=== PATIENT | female | born 1950 | race Two or more races ===

== ENCOUNTER 2019-11-20 11:16 | Outpatient (REF) | payer MEDICARE, BC, SELFPAY ==
[2019-11-20 13:56] LABS: MANUAL DIFF FLAG NO
[2019-11-20 14:02] LABS: Basophils Percent Auto 0.6 % (0-2); Eosinophils Absolute Auto 0.2 X10*3/uL (0.0-0.4); Eosinophils Percent Auto 2.4 % (0-4); Hematocrit 45.4 % (37-47); Imm Gran Abs Auto 0.01 X10*3/uL (0.00-0.03); Imm Gran Pct Auto 0.2 % (0.0-0.4); Lymphocytes Absolute Auto 1.4 X10*3/uL (1.2-4.9); Mean Corpuscular Hemoglobin 31.5 pg (27.0-33.0); Mean Corpuscular Volume 95.4 fL (80-98); Monocytes Absolute Auto 0.6 X10*3/uL (0.1-1.2); Monocytes Percent Auto 9.3 % (2-11); Neutrophils Absolute Auto 4.1 X10*3/uL (2.0-8.3); Neutrophils Percent Auto 65.5 % (45-73); Platelet Count 253 X10*3/uL (160-400); Red Blood Count 4.76 X10*6/uL (4.20-5.50); Red Cell Distribution Width 12.5 % (11.0-16.0); White Blood Count 6.2 X10*3/uL (4.8-10.8)
[2019-11-20 15:05] LABS: Alanine Aminotransferase 17 U/L (0-31); Albumin Level 4.3 g/dL (3.5-5.0); Alkaline Phosphatase 98 U/L (39-117); Anion Gap 12 (12-20); Aspartate Amino Transferase 18 U/L (5-31); Bilirubin Total 1.2 mg/dL (0.0-1.0); Blood Urea Nitrogen 18 mg/dL (9-16); Calcium 9.4 mg/dL (8.4-10.2); Carbon Dioxide 30 mmol/L (22-29); Chloride 105 mmol/L (96-108); Cholesterol 216 mg/dL; Estimated Glomerular Filt Rate > 60; Glucose Fasting 114 mg/dL (60-99); HDL Cholesterol 59 mg/dL; LDL Cholesterol Calculated 134 mg/dl; Potassium 4.9 mmol/l (3.3-5.1); Sodium 142 mmol/L (135-145); Total Protein 6.4 g/dL (6.5-8.0); Triglycerides 115 mg/dL
[2019-11-20 15:27] LABS: TSH reflex Free T4 1.21 mIU/mL (0.32-4.0); Vitamin D 25-OH Total 35.1 ng/mL (>30)
== END 2019-11-20 11:17 | disposition home or self-care (01) ==
LOC: HO.HMGCLDS 11:16
PROVIDERS: PCP Internal Medicine; Visit Provider Internal Medicine
DX: I10 Essential (primary) hypertension (principal); K21.9 Gastro-esophageal reflux disease without esophagitis; E78.5 Hyperlipidemia, unspecified; M85.88 Other specified disorders of bone density and structure, other site
CPT/HCPCS: 36415; 80053; 80061; 82306; 84443; 85025

== ENCOUNTER 2020-03-25 10:22 | Outpatient (REF) | payer MEDICARE, BC, SELFPAY ==
[2020-03-25 12:00] LABS: Alanine Aminotransferase 19 U/L (0-31); Anion Gap 11 (12-20); Aspartate Amino Transferase 19 U/L (5-31); Blood Urea Nitrogen 17 mg/dL (9-16); Carbon Dioxide 30 mmol/L (22-29); Chloride 105 mmol/L (96-108); Cholesterol 190 mg/dL; Estimated Glomerular Filt Rate > 60; Glucose Fasting 100 mg/dL (60-99); HDL Cholesterol 56 mg/dL; LDL Cholesterol Calculated 112 mg/dl; Sodium 141 mmol/L (135-145); Triglycerides 110 mg/dL
[2020-03-25 12:02] LABS: Vitamin D 25-OH Total 31.3 ng/mL (>30)
[2020-03-25 12:14] LABS: Estimated Average Glucose 105 mg/dL; Hemoglobin A1c % 5.3 %
[2020-03-27 15:51] LABS: Albumin Level 4.1 g/dL (3.5-5.0); Alkaline Phosphatase 97 U/L (39-117); Bilirubin Direct 0.4 mg/dL (0.0-0.5); Bilirubin Total 1.1 mg/dL (0.0-1.0); Total Protein 6.1 g/dL (6.5-8.0)
== END 2020-03-25 10:23 | disposition home or self-care (01) ==
LOC: HO.HMGCLDS 10:22
PROVIDERS: PCP Internal Medicine; Visit Provider Internal Medicine
DX: M85.88 Other specified disorders of bone density and structure, other site (principal); R73.01 Impaired fasting glucose; E78.5 Hyperlipidemia, unspecified; I10 Essential (primary) hypertension; Z78.0 Asymptomatic menopausal state
CPT/HCPCS: 36415; 80048; 80061; 80076; 82306; 83036; 84450; 84460

== ENCOUNTER 2020-03-27 15:35 | Outpatient (REF) | payer MEDICARE, BC, SELFPAY | END 2020-03-27 15:36 | disposition home or self-care (01) | LOC: HO.LNP 15:35 | PROVIDERS: Visit Provider Internal Medicine | DX: Z13.89 Encounter for screening for other disorder (principal) ==

== ENCOUNTER 2020-07-08 08:38 | Outpatient (REF) | payer MEDICARE, BC, SELFPAY ==
[2020-07-08 11:35] LABS: MANUAL DIFF FLAG NO
[2020-07-08 11:53] LABS: Basophils Percent Auto 0.7 % (0-2); Eosinophils Absolute Auto 0.2 X10*3/uL (0.0-0.4); Eosinophils Percent Auto 2.8 % (0-4); Hematocrit 46.9 % (37-47); Imm Gran Abs Auto 0.02 X10*3/uL (0.00-0.03); Imm Gran Pct Auto 0.4 % (0.0-0.4); Lymphocytes Absolute Auto 1.8 X10*3/uL (1.2-4.9); Lymphocytes Percent Auto 34.1 % (20-40); Mean Corpuscular Hemoglobin 31.3 pg (27.0-33.0); Mean Corpuscular Volume 97.7 fL (80-98); Mean Platelet Volume 9.5 fL (9.4-12.3); Monocytes Absolute Auto 0.6 X10*3/uL (0.1-1.2); Monocytes Percent Auto 11.6 % (2-11); Neutrophils Absolute Auto 2.7 X10*3/uL (2.0-8.3); Neutrophils Percent Auto 50.4 % (45-73); Platelet Count 233 X10*3/uL (160-400); Red Cell Distribution Width 12.5 % (11.0-16.0); White Blood Count 5.4 X10*3/uL (4.8-10.8)
[2020-07-08 12:03] LABS: Alanine Aminotransferase 14 U/L (0-31); Albumin Level 4.1 g/dL (3.5-5.0); Alkaline Phosphatase 110 U/L (39-117); Anion Gap 12 (12-20); Aspartate Amino Transferase 16 U/L (5-31); Bilirubin Direct 0.4 mg/dL (0.0-0.5); Bilirubin Total 1.2 mg/dL (0.0-1.0); Blood Urea Nitrogen 17 mg/dL (9-16); Calcium 9.3 mg/dL (8.4-10.2); Carbon Dioxide 31 mmol/L (22-29); Chloride 104 mmol/L (96-108); Cholesterol 260 mg/dL; Estimated Glomerular Filt Rate > 60; Glucose Fasting 106 mg/dL (60-99); HDL Cholesterol 61 mg/dL; LDL Cholesterol Calculated 179 mg/dl; Potassium 5.1 mmol/L (3.3-5.1); Sodium 142 mmol/L (135-145); Total Protein 6.1 g/dL (6.5-8.0); Triglycerides 101 mg/dL
[2020-07-08 12:26] LABS: Vitamin D 25-OH Total 24.5 ng/mL (>30)
== END 2020-07-08 08:39 | disposition home or self-care (01) ==
LOC: HO.HMGCLDS 08:38
PROVIDERS: PCP Internal Medicine; Visit Provider Internal Medicine
DX: I10 Essential (primary) hypertension (principal); K21.9 Gastro-esophageal reflux disease without esophagitis; M85.88 Other specified disorders of bone density and structure, other site; E78.5 Hyperlipidemia, unspecified; E80.6 Other disorders of bilirubin metabolism
CPT/HCPCS: 36415; 80053; 80061; 80076; 82248; 82306; 84443; 85025

== ENCOUNTER 2020-10-14 09:54 | Outpatient (REF) | payer MEDICARE, BC, SELFPAY ==
[2020-10-14 12:03] LABS: Vitamin D 25-OH Total 46.5 ng/mL (>30)
[2020-10-14 12:08] LABS: Alanine Aminotransferase 11 U/L (0-31); Anion Gap 11 (12-20); Aspartate Amino Transferase 17 U/L (5-31); Blood Urea Nitrogen 15 mg/dL (9-16); Calcium 9.3 mg/dL (8.4-10.2); Carbon Dioxide 27 mmol/L (22-29); Chloride 108 mmol/L (96-108); Cholesterol 250 mg/dL; Estimated Glomerular Filt Rate > 60; Glucose Fasting 99 mg/dL (60-99); HDL Cholesterol 57 mg/dL; LDL Cholesterol Calculated 171 mg/dl; Potassium 4.5 mmol/L (3.3-5.1); Sodium 141 mmol/L (135-145); Triglycerides 111 mg/dL
== END 2020-10-14 09:55 | disposition home or self-care (01) ==
LOC: HO.HMGCLDS 09:54
PROVIDERS: PCP Internal Medicine; Visit Provider Internal Medicine
DX: I10 Essential (primary) hypertension (principal); E78.5 Hyperlipidemia, unspecified; Z78.0 Asymptomatic menopausal state
CPT/HCPCS: 36415; 80048; 80061; 82306; 82550; 84450; 84460

== ENCOUNTER 2021-02-18 10:11 | Outpatient (REF) | payer MEDICARE, BC, SELFPAY ==
[2021-02-18 12:19] LABS: Cholesterol 211 mg/dL; HDL Cholesterol 58 mg/dL; LDL Cholesterol Calculated 135 mg/dl; Triglycerides 93 mg/dL
== END 2021-02-18 10:12 | disposition home or self-care (01) ==
LOC: HO.HMGCLDS 10:11
PROVIDERS: PCP Internal Medicine; Visit Provider Internal Medicine
DX: I10 Essential (primary) hypertension (principal); E78.5 Hyperlipidemia, unspecified; M85.88 Other specified disorders of bone density and structure, other site; Z78.0 Asymptomatic menopausal state
CPT/HCPCS: 36415; 80061

== ENCOUNTER 2021-07-08 09:03 | Outpatient (REF) | payer MEDICARE, BC, SELFPAY ==
[2021-07-08 11:57] LABS: Alanine Aminotransferase 19 U/L (0-31); Albumin Level 4.1 g/dL (3.5-5.0); Alkaline Phosphatase 84 U/L (39-117); Anion Gap 13 (12-20); Aspartate Amino Transferase 21 U/L (5-31); Bilirubin Total 0.9 mg/dL (0.0-1.0); Blood Urea Nitrogen 16 mg/dL (9-16); Calcium 9.3 mg/dL (8.4-10.2); Carbon Dioxide 27 mmol/L (22-29); Chloride 103 mmol/L (96-108); Cholesterol 211 mg/dL; Estimated Glomerular Filt Rate > 60; Glucose Fasting 109 mg/dL (60-99); HDL Cholesterol 61 mg/dL; LDL Cholesterol Calculated 134 mg/dl; Potassium 4.8 mmol/L (3.3-5.1); Sodium 138 mmol/L (135-145); Total Protein 6.4 g/dL (6.5-8.0); Triglycerides 81 mg/dL
[2021-07-08 12:02] LABS: Vitamin D 25-OH Total 50.4 ng/mL (>30)
== END 2021-07-08 09:04 | disposition home or self-care (01) ==
LOC: HO.HMGCLDS 09:03
PROVIDERS: PCP Internal Medicine; Visit Provider Internal Medicine
DX: E78.5 Hyperlipidemia, unspecified (principal); M85.88 Other specified disorders of bone density and structure, other site; R73.01 Impaired fasting glucose; Z78.0 Asymptomatic menopausal state
CPT/HCPCS: 36415; 80053; 80061; 82306; 82550

== ENCOUNTER 2022-01-11 09:09 | Outpatient (REF) | payer MEDICARE, BC, SELFPAY ==
[2022-01-11 14:08] LABS: Alanine Aminotransferase 22 U/L (0-31); Alkaline Phosphatase 79 U/L (39-117); Anion Gap 10 (12-20); Aspartate Amino Transferase 22 U/L (5-31); Bilirubin Total 1.3 mg/dL (0.0-1.0); Blood Urea Nitrogen 19 mg/dL (9-16); Calcium 9.1 mg/dL (8.4-10.2); Carbon Dioxide 29 mmol/L (22-29); Chloride 106 mmol/L (96-108); Cholesterol 214 mg/dL; Estimated Glomerular Filt Rate > 60; Glucose Fasting 106 mg/dL (60-99); HDL Cholesterol 58 mg/dL; LDL Cholesterol Calculated 136 mg/dl; Potassium 4.7 mmol/L (3.3-5.1); Sodium 140 mmol/L (135-145); Triglycerides 100 mg/dL; Vitamin D 25-OH Total 40.7 ng/mL (>30)
== END 2022-01-11 09:10 | disposition home or self-care (01) ==
LOC: HO.HMGCLDS 09:09
PROVIDERS: PCP Internal Medicine; Visit Provider Internal Medicine
DX: Z00.01 Encounter for general adult medical examination with abnormal findings (principal); R73.01 Impaired fasting glucose; D12.6 Benign neoplasm of colon, unspecified; F31.9 Bipolar disorder, unspecified; M85.88 Other specified disorders of bone density and structure, other site; E78.5 Hyperlipidemia, unspecified; I10 Essential (primary) hypertension; N81.2 Incomplete uterovaginal prolapse; Z78.0 Asymptomatic menopausal state
CPT/HCPCS: 36415; 80053; 80061; 82306

== ENCOUNTER 2022-06-28 09:22 | Outpatient (REF) | payer MEDICARE, BC, SELFPAY ==
[2022-06-28 12:14] LABS: Alanine Aminotransferase 15 U/L (0-31); Anion Gap 10 (12-20); Aspartate Amino Transferase 18 U/L (5-31); Blood Urea Nitrogen 15 mg/dL (9-16); Calcium 9.3 mg/dL (8.4-10.2); Carbon Dioxide 28 mmol/L (22-29); Chloride 107 mmol/L (96-108); Cholesterol 234 mg/dL; Estimated Glomerular Filt Rate > 60; Glucose Fasting 100 mg/dL (60-99); HDL Cholesterol 64 mg/dL; LDL Cholesterol Calculated 152 mg/dl; Potassium 4.9 mmol/L (3.3-5.1); Sodium 140 mmol/L (135-145); Triglycerides 94 mg/dL; Vitamin D 25-OH Total 42.6 ng/mL (>30)
[2022-06-28 12:15] LABS: Estimated Average Glucose 105 mg/dL; Hemoglobin A1c % 5.3 %
== END 2022-06-28 09:23 | disposition home or self-care (01) ==
LOC: HO.HMGCLDS 09:22
PROVIDERS: PCP Internal Medicine; Visit Provider Internal Medicine
DX: E78.5 Hyperlipidemia, unspecified (principal); I10 Essential (primary) hypertension; R73.01 Impaired fasting glucose; Z78.0 Asymptomatic menopausal state; M85.88 Other specified disorders of bone density and structure, other site
CPT/HCPCS: 36415; 80048; 80061; 82306; 83036; 84450; 84460

== ENCOUNTER 2023-01-16 08:45 | Outpatient (REF) | payer MEDICARE, BC, SELFPAY ==
[2023-01-16 12:21] LABS: Vitamin D 25-OH Total 59.5 ng/mL (>30)
[2023-01-16 12:25] LABS: Alanine Aminotransferase 19 U/L (0-31); Albumin Level 4.1 g/dL (3.5-5.0); Alkaline Phosphatase 68 U/L (39-117); Anion Gap 12 (12-20); Aspartate Amino Transferase 22 U/L (5-31); Bilirubin Total 0.9 mg/dL (0.0-1.0); Blood Urea Nitrogen 17 mg/dL (9-16); Calcium 9.4 mg/dL (8.4-10.2); Carbon Dioxide 28 mmol/L (22-29); Chloride 106 mmol/L (96-108); Cholesterol 177 mg/dL (<200); Estimated Glomerular Filt Rate > 60; Glucose Fasting 100 mg/dL (60-99); HDL Cholesterol 57 mg/dL (>40); LDL Cholesterol Calculated 103 mg/dL (<100); Potassium 4.7 mmol/L (3.3-5.1); Sodium 141 mmol/L (135-145); Total Protein 6.4 g/dL (6.5-8.0); Triglycerides 86 mg/dL (<150)
== END 2023-01-16 08:46 | disposition home or self-care (01) ==
LOC: HO.HMGCLDS 08:45
PROVIDERS: PCP Internal Medicine; Visit Provider Internal Medicine
DX: R17 Unspecified jaundice (principal); R73.01 Impaired fasting glucose; E78.5 Hyperlipidemia, unspecified; I10 Essential (primary) hypertension
CPT/HCPCS: 36415; 80053; 80061; 82306

== ENCOUNTER 2023-01-18 12:21 | Outpatient (AMB) | payer MEDICARE, BC, SELFPAY ==
--- NOTE | 2023-01-18 12:23 | A.OFFPC_ITS ---
Vital Signs 01/18/23 12:24 Height 5 ft 6.5 in Weight 214 lb BMI 34.0 BP 120/84 Blood Pressure Location Lt brachial Position Sitting Pulse 54 Pulse Source Pulse Oximeter Pulse Oximetry (%) 99 Oxygen Delivery Method Room Air Intake Visit Reasons: PE- secondary ins covers PE Allergies No Known Allergies Allergy (Verified 01/18/23 13:08) Medication List - Last Reconciled 03/04/23 by Betty Almaraz MD albuterol sulfate 90 mcg/actuation 1 puff inhalation Q6H PRN amlodipine (Norvasc) 5 mg PO DAILY aspirin 81 mg PO DAILY rosuvastatin 5 mg PO Q2D 90 days telmisartan 40 mg PO BID umeclidinium-vilanterol 62.5-25 mcg/actuation (Anoro Ellipta) 1 ea inhalation DAILY Tobacco use date assessed: 07/07/22 Fall risk assessment: No Falls in past year Last assessed Fall Risk: 01/18/23 Dental Screening Dental Screen Date: 01/18/23 Did you have a dental visit in the last 12 months?: Yes Did you have a dental problem in the last 6 months where you did not have access to dental care?: No Was dental information given to patient?: Patient has dentist HPI PE- secondary ins covers PE HPI Details 72-year-old lady with hypertension, hype rlipidemia, prediabetes, bipolar disorder , osteoarthritis , and osteopenia, here today for physical exam. She goes to [facility], sees for her routine Pap and pelvic exam, last done 08/18/2022 with negative findings. She also gets her mammogram and bone density scan done at [facility]. She is up-to-date with her screening colonoscopy done by Dr. Cee last 2019 with tubular adenoma removed, due for repeat colonoscopy this year. Former tobacco smoker, gets and will lung cancer screening at [facility], last 1 done earlier this year which came back with negative findings peer [facility] Medical History (Updated 03/04/23 @ 21:56 by Betty Almaraz MD) Trigger finger, left ring finger Uterovaginal prolapse, incomplete Impaired fasting glucose Chronic low back pain Hiatal hernia Tubular adenoma of colon Infarction of left basal ganglia Insomnia GERD (gastroesophageal reflux disease) Bipolar disorder Osteoarthritis of knees, bilateral Osteopenia of lumbar spine Dyslipidemia COPD (chronic obstructive pulmonary disease) Aneurysm of left internal carotid artery Essential hypertension Surgical History History of craniotomy 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 History of arthroscopic knee surgery History of knee replacement History of tonsillectomy History of bilateral tubal ligation Family History Father History of CVA (cerebrovascular accident) Mother Osteoarthritis Brother Colon cancer Sister Cancer Social History Housing: [facility] Alcohol intake: current Alcohol intake frequency: holidays/special occasions only Patient Tobacco Use Status: Former Tobacco user Years Smoked: 45yrs e-Cigarette/Vaping Use: Never Used Current occupational status: retired Cognitive needs: No Hearing needs: No Vision needs: Yes Questionnaire PHQ-9 Over the last 2 weeks, how often have you been bothered by any of the following problems? 1. Little interest or pleasure in doing things: not at all 2. Feeling down, depressed, or hopeless: not at all 3. Trouble falling or staying asleep, or sleeping too much: not at all 4. Feeling tired or having little energy: not at all 5. Poor appetite or overeating: not at all 6. Feeling bad about yourself - or that you are a failure or have let yourself or your family down: not at all 7. Trouble concentrating on things, such as reading the newspaper or watching television: not at all 8. Moving or speaking so slowly that other people could have noticed. Or the opposite - being so fidgety or restless that you have been moving around a lot more than usual: not at all 9. Thoughts that you would be better off or of hurting yourself in some way: not at all Total score: 0 Depression Screening Interpretation: Negative Depression Screening Done: Yes 21114 - PHQ-9 Billing: Yes Source: Developed by Drs. Guanakito Pagan, Henny Oreilly, Patrick Daniel and colleagues, with an educational sindy from [employer]. Thrive Questionnaire Date Thrive assessed: 01/18/23 What is your living situation today?: I have a steady place to live Within the past 12 months, did the food you bought not last and you didn't have the money to get more?: Never true Within the past 12 months, did you worry whether your food would run out before you got money to buy more?: Never true Do you have trouble paying for medicines?: No Do you have trouble getting transportation to medical appointments?: No Do you have trouble paying your heating and electricity bill?: No Do you have trouble taking care of your child, family member or friend?: No Do you have trouble with day-to-day activities such as bathing, preparing meals, shopping, managing finances, etc.?: No Are you currently unemployed and looking for a job?: No Are you interested in more education?: No AUDIT C Alcohol Use Questionnaire (AUDIT-C) 1. How often do you have a drink containing alcohol?: Monthly or less 2. How many drinks containing alcohol do you have on a typical day when you are drinking?: 1 or 2 3. How often do you have six or more drinks on one occasion?: Never Total Score: 1 Score Reviewed/Action Taken: No LEI-7 AMB Questionnaire LEI-7 Date LEI - 7 assessed: 01/18/23 Feeling nervous, anxious, or on edge: 0 = Not at all Not being able to stop or control worryin = Not at all Worrying too much about different things: 0 = Not at all Trouble relaxin = Not at all Being so restless that it is hard to sit still: 0 = Not at all Becoming easily annoyed or irritable: 0 = Not at all Feeling afraid as if something awful might happen: 0 = Not at all Total LEI-7 score (0-4 normal; 5-9 mild; 10-14 moderate; 15-21 severe): 0 Source: Developed by Drs. Guanakito Pagan, Henny Oreilly, Patrick Daniel and colleagues, with an educational sindy from [employer]. LEI-7 Assessment Billing LEI-7 Assessment Tool: LEI-7 Assessment 12388 Review of Systems Const Denies fatigue, Denies headache(s) and Denies malaise Eyes Reports requires corrective lenses ENT Denies dizziness, Denies headache(s) and Denies nasal congestion Card Denies chest pain, Denies lightheadedness, Denies palpitations and Denies dyspnea Resp Denies cough and Denies dyspnea GI Denies abdominal pain, Denies change in bowel habits and Denies heartburn Denies urinary urgency Musc Denies back pain, Denies joint swelling, Denies muscle cramps and Reports stiffness Skin/Breast Denies lesions and Denies rash Neuro Denies dizziness and Denies headache(s) Psych Reports no additional complaints Endo Denies fatigue, Denies polydipsia, Denies polyuria and Denies palpitations Parvez/Lymph Reports no additional complaints Aller/Immun Reports no additional complaints Physical exam (Primary Care) Vital Signs: Last Vital Signs Pulse 54 01/18/23 12:24 BP 120/84 01/18/23 12:24 Pulse Ox 99 01/18/23 12:24 Oxygen Delivery Method Room Air 01/18/23 12:24 BMI result Body Mass Index 34.0 Tobacco/Smoking Status: Tobacco use Status Tobacco use date assessed 07/07/22 01/18/23 12:24 Patient Tobacco Use Status Former Tobacco user 01/18/23 12:24 e-Cigarette/Vaping Use Never Used 01/18/23 12:24 Depression Screening Interpretation: Negative Thrive Assessment: Date of Thrive Assessment Date Thrive assessed 01/10/22 01/18/23 12:24 Const Other: Alert oriented x3, no acute distress noted ambulatory normal gait General: healthy appearing, comfortable and no acute distress Orientation/consciousness: patient oriented x3 HENMT Head: Yes normocephalic General nose exam: Normal external nose present Face and sinus: Yes face symmetric Mouth: Normal oral and palatal mucosa present and moist mucous membranes Eyes General: appearance normal, both eyes and all related structures Pupils: Equal, round and reactive pupils present EOM: EOMs intact bilaterally Neck Neck: Yes full ROM, Yes no lymphadenopathy and Yes supple Chest Breast/axilla palpation: normal palpation of the breasts Resp Effort & Inspection: normal respiratory effort and able to speak in complete sentences Auscultation: clear to auscultation bilaterally Cardio Rate: regular rate Rhythm: regular rhythm Heart sounds: S1 normal heart sound present and S2 normal heart sound present GI Palpation (GI): Soft to palpation, nontender, no guarding and no masses Auscultation: normal bowel sounds General: Yes no CVA tenderness Back/Spine/Pelvis Back: no CVA tenderness Skin General skin exam: no rashes or lesions noted Neuro General: patient oriented x3, gait normal, moves all extremities and no focal motor deficits Cranial nerves: Yes Equal, round and reactive pupils present Cognition (Neuro): normal cognition Gait exam (Neuro): Normal gait present Motor exam (neuro): 5/5 motor strength present throughout Extrem Other: No gross before bony deformity noted no joint swelling seen, full range of motion of left index finger on inspection Psych Appearance: grossly normal Mental Status: mental status grossly normal Speech and movement: Normal speech and movement present Affect: normal affect Attitude: cooperative Thought process: Normal thought process present Results Reviewed Results Reviewed: PEC : [id number] DONOVAN: 01/16/23 STATUS: COMP REQ : [id number] RECD: 01/16/[address]: Betty Almaraz MD COMP: 01/16/23 ENTERED: 01/16/[address]: ORDERED: CMP Fast, Lipid Panel, Vitamin D 25-OH Test Result Flag Reference Site Sodium 141 135-145 mmol/L Potassium 4.7 3.3-5.1 mmol/L Slight Hemolysis CL 106 96-108 mmol/L CO2 28 22-29 mmol/L Gap 12 12-20 BUN 17 H 9-16 mg/dL Creat 0.85 0.5-1.4 mg/dL EGFR > 60 NOTE: For -[place] individuals, multiply the result by 1.210. Chronic Kidney Disease: Estimated GFR < 60 mL/min/1.73m2 Severe Kidney Disease: Estimated GFR < 15 mL/min/1.73m2 FBS 100 H 60-99 mg/dL A fasting glucose from 100-125 mg/dl is considered impaired (pre-diabetes). CA 9.4 8.4-10.2 mg/dL Total Bili 0.9 0.0-1.0 mg/dL AST (GOT) 22 5-31 U/L Slight Hemolysis ALT (GPT) 19 0-31 U/L Protein, Total 6.4 L 6.5-8.0 g/dL Alb 4.1 3.5-5.0 g/dL Triglyceride 86 <150 mg/dL Desirable Triglyceride: less than 150 mg/dL Borderline High Triglyceride 150-199 mg/dL High Triglyceride: 200-499 mg/dL Very High Triglyceride: greater than or equal to 5OO mg/dL Cholesterol 177 <200 mg/dL Desirable Cholesterol: less than 200 mg/dL Borderline High Cholesterol: 200-239 mg/dL High Cholesterol: greater than 239 mg/dL LDL Calculated 103 H <100 mg/dL Desirable LDL: less than 100 mg/dL Near Optimal/Above Optimal LDL: 110-129 mg/dL Borderline High LDL: 130-159 mg/dL High LDL: 160-189 mg/dL Very High LDL: greater than or equal to 190 mg/dL HDL 57 >40 mg/dL Desirable HDL: greater than 40 mg/dL Note: This HDL assay may give artificially low results in patients with liver disease. Alk Phos 68 39-117 U/L Vit D 25-OH Tot 59.5 >30 ng/mL Health Based Reference Values* < 20 ng/mL Deficient 20-30 ng/mL Insufficient > 30 ng/mL Sufficient Assessment and Plan Assessment & Plan (1) Annual visit for general adult medical examination with abnormal findings: Code(s): Z00.01 - Encounter for general adult medical examination with abnormal findings Plan: Results of recent labs discussed with patient. Recommended dental visit every 6 months and regular eye exams, currently up-to-date. Take adequate calcium in diet and vitamin-D 3 at 2000 IU per cap once a day, in addition to weight- bearing exercises to help maintain good muscle tone and weight control. Instructed to do self-breast exam, and recommended to get yearly mammogram, up-to-date with her Pap and pelvic exam, and is up-to-date with her screening colonoscopy. Up-to-date with all her vaccinations, reminded to get her COVID booster (2) Impaired fasting glucose: Code(s): R73.01 - Impaired fasting glucose Plan: Recent fasting blood sugar was 100 mg/dL. Impaired glucose metabolism O2 at risk for developing diabetes mellitus type 2, as well as heart attack and stroke later on. Lifestyle changes at just weight loss, healthy eating habits, and regular exercise are important, and can prevent the progression to diabetes (3) Dyslipidemia: Code(s): E78.5 - Hyperlipidemia, unspecified Plan: Reviewed recent fasting lipid profile with patient with levels within normal limits . Continue with rosuvastatin 5 mg every other day , in addition to adherence to low-cholesterol diet and regular exercise, at least 30 minutes 3 to 4 times a week. Advised patient to make healthy food choices, eat more fruits, vegetables, whole grains, wild caught fish and low-fat dairy. Limit amount of meat and fried or fatty food products, as well as processed foods and fast foods. Follow-up scheduled with repeat fasting lipid panel in 4 months. (4) Essential hypertension: Comment: sees Dr Viera Code(s): I10 - Essential (primary) hypertension Plan: Blood pressure at goal of less than 130/80. Continue with current medication. Reinforced importance of following a low sodium diet, getting regular exercise, and lowering stress levels. Orders: Orders Basic Metabolic Panel Fasting 05/08/23 R73.01 - Impaired fasting glucose, Z78.0 - Asymptomatic menopausal state, E78.5 - Hyperlipidemia, unspecified, M85.88 - Other specified disorders of bone density and structure, other site, I10 - Essential (primary) hypertension Lipid Panel 05/08/23 R73.01 - Impaired fasting glucose, Z78.0 - Asymptomatic menopausal state, E78.5 - Hyperlipidemia, unspecified, M85.88 - Other specified disorders of bone density and structure, other site, I10 - Essential (primary) hypertension Vitamin D 25-OH Total 05/08/23 R73.01 - Impaired fasting glucose, Z78.0 - Asymptomatic menopausal state, E78.5 - Hyperlipidemia, unspecified, M85.88 - Other specified disorders of bone density and structure, other site, I10 - Essential (primary) hypertension Alanine Aminotransferase 05/08/23 R73.01 - Impaired fasting glucose, Z78.0 - Asymptomatic menopausal state, E78.5 - Hyperlipidemia, unspecified, M85.88 - Other specified disorders of bone density and structure, other site, I10 - Essential (primary) hypertension Aspartate Amino Transferase 05/08/23 R73.01 - Impaired fasting glucose, Z78.0 - Asymptomatic menopausal state, E78.5 - Hyperlipidemia, unspecified, M85.88 - Other specified disorders of bone density and structure, other site, I10 - Essential (primary) hypertension Hemoglobin A1c 05/08/23 R73.01 - Impaired fasting glucose, Z78.0 - Asymptomatic menopausal state, E78.5 - Hyperlipidemia, unspecified, M85.88 - Other specified disorders of bone density and structure, other site, I10 - Essential (primary) hypertension Coding Level of Care Code Est Pt Prev Care >65y(40742) Diagnoses Annual visit for general adult medical examination with abnormal findings Z00.01 Impaired fasting glucose R73.01 Dyslipidemia E78.5 Essential hypertension I10 Additional Codes LEI-7 Assessment Billing - LEI-7 Assessment Tool: LEI-7 Assessment 99938 ([id number])
[2023-01-18 12:24] VITALS: BP 120/84; PULSE 54; O2SAT 99; BMI 34.0
== END 2023-01-18 13:26 | disposition home or self-care (01) ==
PROVIDERS: Visit Provider Internal Medicine
DX: Z00.00 Encounter for general adult medical examination without abnormal findings (principal); R73.01 Impaired fasting glucose; E78.5 Hyperlipidemia, unspecified; I10 Essential (primary) hypertension
CPT/HCPCS: 99397

== ENCOUNTER 2023-05-12 08:39 | Outpatient (REF) | payer MEDICARE, OTHER, SELFPAY ==
[2023-05-12 10:39] LABS: MANUAL DIFF FLAG NO
[2023-05-12 10:51] LABS: Basophils Percent Auto 0.5 % (0-2); Eosinophils Absolute Auto 0.2 X10*3/uL (0.0-0.4); Eosinophils Percent Auto 2.9 % (0-4); Hematocrit 44.1 % (37.0-47.0); Hemoglobin 14.2 g/dl (12.0-16.0); Imm Gran Abs Auto 0.03 X10*3/uL (0.00-0.03); Imm Gran Pct Auto 0.4 % (0.0-0.4); Lymphocytes Absolute Auto 1.3 X10*3/uL (1.2-4.9); Lymphocytes Percent Auto 17.9 % (20-40); Mean Corpuscular HGB Conc 32.2 g/dl (31.0-35.0); Mean Corpuscular Hemoglobin 31.3 pg (27.0-33.0); Mean Corpuscular Volume 97.1 fL (80.0-98.0); Mean Platelet Volume 9.4 fL (9.4-12.3); Monocytes Absolute Auto 0.8 X10*3/uL (0.1-1.2); Monocytes Percent Auto 11.1 % (2-11); Neutrophils Percent Auto 67.2 % (45-73); Platelet Count 242 X10*3/uL (160-400); Red Blood Count 4.54 X10*6/uL (4.20-5.50); Red Cell Distribution Width 14.4 % (11.0-16.0); White Blood Count 7.5 X10*3/uL (4.8-10.8)
[2023-05-12 10:58] LABS: Estimated Average Glucose 105 mg/dL; Hemoglobin A1C 120.7836 umol/L; Hemoglobin A1c % 5.3 % (<6.0)
[2023-05-12 11:24] LABS: Alanine Aminotransferase 24 U/L (0-31); Anion Gap 10 (12-20); Aspartate Amino Transferase 23 U/L (5-31); Blood Urea Nitrogen 15 mg/dL (9-16); Calcium 9.1 mg/dL (8.4-10.2); Carbon Dioxide 28 mmol/L (22-29); Chloride 105 mmol/L (96-108); Cholesterol 177 mg/dL (<200); Estimated Glomerular Filt Rate > 60; Glucose Fasting 104 mg/dL (60-99); HDL Cholesterol 54 mg/dL (>40); LDL Cholesterol Calculated 104 mg/dL (<100); Potassium 4.4 mmol/L (3.3-5.1); Sodium 139 mmol/L (135-145); Triglycerides 99 mg/dL (<150); Vitamin D 25-OH Total 63.3 ng/mL (>30)
[2023-05-12 11:26] LABS: Thyroid Stimulating Hormone 1.72 uIU/mL (0.32-4.0)
[2023-05-14 09:28] LABS: Anti Nuclear Antibody Screen NEGATIVE (NEGATIVE)
== END 2023-05-12 08:40 | disposition home or self-care (01) ==
LOC: HO.HMGCLDS 08:39
PROVIDERS: PCP Internal Medicine; Referring Provider Physician Assistant Medical; Visit Provider Internal Medicine
DX: R73.01 Impaired fasting glucose (principal); E78.5 Hyperlipidemia, unspecified; M85.88 Other specified disorders of bone density and structure, other site; I10 Essential (primary) hypertension; L65.9 Nonscarring hair loss, unspecified; L65.0 Telogen effluvium; Z78.0 Asymptomatic menopausal state
CPT/HCPCS: 36415; 80048; 80061; 82306; 83036; 84443; 84450; 84460; 85025; 86038

== ENCOUNTER 2023-05-22 11:52 | Outpatient (AMB) | payer MEDICARE, OTHER, SELFPAY ==
[2023-05-22 12:37] VITALS: BP 132/80; PULSE 55; O2SAT 100; BMI 31.9
--- NOTE | 2023-05-22 12:37 | A.OFFPC_ITS ---
Vital Signs 05/22/23 12:37 Height 5 ft 6.5 in Weight 200 lb 6 oz BMI 31.9 BP 132/80 Blood Pressure Location Lt brachial Position Sitting Pulse 55 Pulse Source Pulse Oximeter Pulse Oximetry (%) 100 Oxygen Delivery Method Room Air Intake Visit Reasons: Cataract Surgery Per Dr. Patrick Intake Note: Pt is here today for her pre-op for cataract surgery, Dr. Batista Lt eye 05/30, Rt eye 06/13 Allergies No Known Allergies Allergy (Verified 05/23/23 01:12) Medication List - Last Reconciled 05/23/23 by Betty Almaraz MD albuterol sulfate 90 mcg/actuation 1 puff inhalation Q6H PRN aspirin 81 mg PO DAILY rosuvastatin 5 mg PO Q2D 90 days telmisartan 40 mg PO BID Tobacco use date assessed: 05/22/23 Fall risk assessment: No Falls in past year Last assessed Fall Risk: 05/22/23 Dental Screening Dental Screen Date: 05/22/23 Did you have a dental visit in the last 12 months?: Yes Did you have a dental problem in the last 6 months where you did not have access to dental care?: Yes Was dental information given to patient?: Patient has dentist HPI Cataract Surgery Per Dr. Patrick HPI Details 72 year-old lady with medical history s ignificant for hypertension, hyperlipidemia, prediabetes, bipolar disorder , osteoarthritis , and osteopenia, here today for preoperative exam for cataract surgery, scheduled for 05/31/2023 and 06/14/2023, requested by Dr. Foote . She has been feeling well, with no complaints at present time. Two lead EKG done showed presence of sinus bradycardia, otherwise normal EKG. 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 History of arthroscopic knee surgery History of knee replacement History of tonsillectomy History of bilateral tubal ligation Family History Father History of CVA (cerebrovascular accident) Mother Osteoarthritis Brother Colon cancer Sister Cancer Social History Housing: Condominium Alcohol intake: current Alcohol intake frequency: holidays/special occasions only Patient Tobacco Use Status: Former Tobacco user Years Smoked: 45yrs e-Cigarette/Vaping Use: Never Used Current occupational status: retired Cognitive needs: No Hearing needs: No Vision needs: Yes Questionnaire PHQ-9 Over the last 2 weeks, how often have you been bothered by any of the following problems? 1. Little interest or pleasure in doing things: not at all 2. Feeling down, depressed, or hopeless: not at all 3. Trouble falling or staying asleep, or sleeping too much: several days 4. Feeling tired or having little energy: several days 5. Poor appetite or overeating: not at all 6. Feeling bad about yourself - or that you are a failure or have let yourself or your family down: not at all 7. Trouble concentrating on things, such as reading the newspaper or watching television: not at all 8. Moving or speaking so slowly that other people could have noticed. Or the opposite - being so fidgety or restless that you have been moving around a lot more than usual: not at all 9. Thoughts that you would be better off or of hurting yourself in some way: not at all Total score: 2 Depression Screening Interpretation: Negative Depression Screening Done: Yes 57394 - PHQ-9 Billing: Yes Source: Developed by Drs. Guanakito Pagan, Henny Oreilly, Patrick Daniel and colleagues, with an educational sindy from [employer]. Thrive Questionnaire Date Thrive assessed: 05/22/23 What is your living situation today?: I have a steady place to live Within the past 12 months, did the food you bought not last and you didn't have the money to get more?: Never true Within the past 12 months, did you worry whether your food would run out before you got money to buy more?: Never true Do you have trouble paying for medicines?: No Do you have trouble getting transportation to medical appointments?: No Do you have trouble paying your heating and electricity bill?: No Do you have trouble taking care of your child, family member or friend?: No Do you have trouble with day-to-day activities such as bathing, preparing meals, shopping, managing finances, etc.?: No Are you currently unemployed and looking for a job?: No Are you interested in more education?: No THRIVE Score: 0 AUDIT C Alcohol Use Questionnaire (AUDIT-C) 1. How often do you have a drink containing alcohol?: Monthly or less 2. How many drinks containing alcohol do you have on a typical day when you are drinking?: 1 or 2 3. How often do you have six or more drinks on one occasion?: Never Total Score: 1 LEI-7 AMB Questionnaire LEI-7 Date LEI - 7 assessed: 05/22/23 Feeling nervous, anxious, or on edge: 0 = Not at all Not being able to stop or control worryin = Not at all Worrying too much about different things: 0 = Not at all Trouble relaxin = Not at all Being so restless that it is hard to sit still: 0 = Not at all Becoming easily annoyed or irritable: 0 = Not at all Feeling afraid as if something awful might happen: 0 = Not at all Total LIE-7 score (0-4 normal; 5-9 mild; 10-14 moderate; 15-21 severe): 0 Source: Developed by Drs. Guanakito Pagan, Henny Oreilly, Patrick Daniel and colleagues, with an educational sindy from [employer]. Review of Systems Const Denies fatigue, Denies headache(s) and Denies malaise Eyes Reports requires corrective lenses ENT Denies dizziness, Denies headache(s) and Denies nasal congestion Card Denies chest pain, Denies lightheadedness, Denies palpitations and Denies dyspnea Resp Denies cough and Denies dyspnea GI Denies abdominal pain, Denies change in bowel habits and Denies heartburn Denies urinary urgency Musc Denies back pain, Denies joint swelling, Denies muscle cramps and Reports stiffness Skin/Breast Denies lesions and Denies rash Neuro Denies dizziness and Denies headache(s) Psych Reports no additional complaints Endo Denies fatigue, Denies polydipsia, Denies polyuria and Denies palpitations Parvez/Lymph Reports no additional complaints Aller/Immun Reports no additional complaints Physical exam (Primary Care) Vital Signs: Last Vital Signs Pulse 55 05/22/23 12:37 BP 132/80 05/22/23 12:37 Pulse Ox 100 05/22/23 12:37 Oxygen Delivery Method Room Air 05/22/23 12:37 BMI result Body Mass Index 31.9 Tobacco/Smoking Status: Tobacco use Status Tobacco use date assessed 05/22/23 05/22/23 12:48 Patient Tobacco Use Status Former Tobacco user 05/22/23 12:48 e-Cigarette/Vaping Use Never Used 05/22/23 12:48 PHQ-9: PHQ-9 Score PHQ-9: Total score 2 05/23/23 01:26 Depression Screening Interpretation: Negative Thrive Assessment: Date of Thrive Assessment Date Thrive assessed 05/22/23 05/23/23 01:26 Const Other: Alert oriented x3, no acute distress noted ambulatory normal gait HENMT Head: Yes normocephalic General nose exam: Normal external nose present Face and sinus: Yes face symmetric Mouth: Normal oral and palatal mucosa present and moist mucous membranes Eyes General: appearance normal, both eyes and all related structures Pupils: Equal, round and reactive pupils present EOM: EOMs intact bilaterally Neck Neck: Yes full ROM, Yes no lymphadenopathy and Yes supple Resp Effort & Inspection: normal respiratory effort and able to speak in complete sentences Auscultation: clear to auscultation bilaterally Cardio Rate: regular rate Rhythm: regular rhythm Heart sounds: S1 normal heart sound present and S2 normal heart sound present GI Palpation (GI): Soft to palpation, nontender, no guarding and no masses Auscultation: normal bowel sounds General: Yes no CVA tenderness Back/Spine/Pelvis Back: no CVA tenderness Skin General skin exam: no rashes or lesions noted Neuro General: gait normal, moves all extremities and no focal motor deficits Cranial nerves: Yes Equal, round and reactive pupils present Cognition (Neuro): normal cognition Gait exam (Neuro): Normal gait present Motor exam (neuro): 5/5 motor strength present throughout Extrem Other: No gross before bony deformity noted no joint swelling seen Psych Appearance: grossly normal Mental Status: mental status grossly normal Speech and movement: Normal speech and movement present Affect: normal affect Attitude: cooperative Thought process: Normal thought process present Results Reviewed Results Reviewed: Name: Darlin Trujillo Age/Sex: 72/F [facility] 1950 [id number] Unit#: [id number] Attend Dr: Betty Almaraz MD Re05/12/23 Status: DEP REF Location: [facility] Disch: SPEC : [id number] DONOVAN: 05/12/23 STATUS: COMP REQ : [id number] RECD: 05/12/[address]: Betty Almaraz MD COMP: 05/12/23 ENTERED: 05/12/23 [facility] DR: ORDERED: Met Prof Fast, AST, ALT, Lipid Panel, Vitamin D 25-OH Test Result Flag Reference Sodium 139 135-145 mmol/L Potassium 4.4 3.3-5.1 mmol/L CL 105 96-108 mmol/L CO2 28 22-29 mmol/L Gap 10 L 12-20 BUN 15 9-16 mg/dL Creat 0.80 0.5-1.4 mg/dL EGFR > 60 NOTE: For -[place] individuals, multiply the result by 1.210. Chronic Kidney Disease: Estimated GFR < 60 mL/min/1.73m2 Severe Kidney Disease: Estimated GFR < 15 mL/min/1.73m2 FBS 104 H 60-99 mg/dL A fasting glucose from 100-125 mg/dl is considered impaired (pre-diabetes). CA 9.1 8.4-10.2 mg/dL AST (GOT) 23 5-31 U/L ALT (GPT) 24 0-31 U/L Triglyceride 99 <150 mg/dL Desirable Triglyceride: less than 150 mg/dL Borderline High Triglyceride 150-199 mg/dL High Triglyceride: 200-499 mg/dL Very High Triglyceride: greater than or equal to 5OO mg/dL Cholesterol 177 <200 mg/dL Desirable Cholesterol: less than 200 mg/dL Borderline High Cholesterol: 200-239 mg/dL High Cholesterol: greater than 239 mg/dL LDL Calculated 104 H <100 mg/dL Desirable LDL: less than 100 mg/dL Near Optimal/Above Optimal LDL: 110-129 mg/dL Borderline High LDL: 130-159 mg/dL High LDL: 160-189 mg/dL Very High LDL: greater than or equal to 190 mg/dL HDL 54 >40 mg/dL Desirable HDL: greater than 40 mg/dL Note: This HDL assay may give artificially low results in patients with liver disease. Vit D 25-OH Tot 63.3 >30 ng/mL Health Based Reference Values* < 20 ng/mL Deficient 20-30 ng/mL Insufficient > 30 ng/mL Sufficient Name: Dalrin Trujillo Age/Sex: 72/F : 1950 Unit#: [id number] Attend Dr: Betty Almaraz MD Re05/12/23 Status: DEP REF Location: [facility] Disch: SPEC : [id number] DONOVAN: 05/12/23 STATUS: COMP REQ : [id number] RECD: 05/12/[address]: Muriel Cantrell PA-C COMP: 05/12/23 ENTERED: 05/12/23 [facility] DR: Betty Almaraz MD ORDERED: CBC Auto Diff Test Result Flag Reference WBC 7.5 4.8-10.8 X10*3/uL RBC 4.54 4.20-5.50 X10*6/uL HGB 14.2 12.0-16.0 g/dl HCT 44.1 37.0-47.0 % MCV 97.1 80.0-98.0 fL MCH 31.3 27.0-33.0 pg MCHC 32.2 31.0-35.0 g/dl RDW 14.4 11.0-16.0 % PLT 242 160-400 X10*3/uL MPV 9.4 9.4-12.3 fL Neut Pct Auto 67.2 45-73 % ImGran Pct Auto 0.4 0.0-0.4 % Lymp Pct Auto 17.9 L 20-40 % Kendall Pct Auto 11.1 H 2-11 % Eos Pct Auto 2.9 0-4 % Baso Pct Auto 0.5 0-2 % NRBC Pct Auto 0.0 0.0-0.2 /100WBC ANC Neut Abs # 5.0 2.0-8.3 x10*3/uL ImGran Abs Auto 0.03 0.00-0.03 X10*3/uL Lymph Abs Auto 1.3 1.2-4.9 X10*3/uL Kendall Abs Auto 0.8 0.1-1.2 X10*3/uL Eos Abs Auto 0.2 0.0-0.4 X10*3/uL Baso Abs Auto 0.0 0.0-0.2 X10*3/uL NRBC Abs Auto 0.000 0.0-0.012 X10*3/uL Assessment and Plan Assessment & Plan (1) Preoperative examination: Code(s): Z01.818 - Encounter for other preprocedural examination Plan: 72-year-old lady here today for preoperative exam for cataract surgery scheduled for 05/31/2023 and 06/14/2023, requested by Dr. Foote. Patient preoperative exam, labs, were all unremarkable. EKG done today showed presence of sinus bradycardia with be to 58 beats per minute, with no acute ST-T changes, essentially normal EKG. Patient with low cardiac risk index for proposed surgery (2) Dyslipidemia: Code(s): E78.5 - Hyperlipidemia, unspecified Plan: Reviewed recent fasting lipid profile with patient with levels within normal limits . Continue with rosuvastatin 5 mg taken 1 tablet every other day , in addition to adherence to low-cholesterol diet and regular exercise, at least 30 minutes 3 to 4 times a week. Advised patient to make healthy food choices, eat more fruits, vegetables, whole grains, wild caught fish and low-fat dairy. Limit amount of meat and fried or fatty food products, as well as processed foods and fast foods. Follow-up scheduled with repeat fasting lipid panel in 6 months. (3) Essential hypertension: Comment: sees Dr Viera Code(s): I10 - Essential (primary) hypertension Plan: Blood pressure at goal of less than 130/80. Continue with telmisartan 40 mg 1 tablet p.o. 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 Reinforced impor tance of following a low sodium diet, getting regular exercise, and lowering stress levels. (4) COPD (chronic obstructive pulmonary disease): Comment: followed by Dr. Yeh Code(s): J44.9 - Chronic obstructive pulmonary disease, unspecified Qualifiers: COPD type: unspecified COPD Qualified Code(s): J44.9 - Chronic obstructive pulmonary disease, unspecified Plan: Currently asymptomatic, has albuterol inhaler which she rarely needs to use (5) Osteoarthritis of knees, bilateral: Code(s): M17.0 - Bilateral primary osteoarthritis of knee Plan: Takes an occasional Tylenol as needed for joint pain (6) Bipolar disorder: Comment: followed by therapist once a month Code(s): F31.9 - Bipolar disorder, unspecified Qualifiers: Active/Remission status: remission status unspecified Qualified Code(s): F31.9 - Bipolar disorder, unspecified Plan: Currently followed by psychiatry/therapy (7) Impaired fasting glucose: Code(s): R73.01 - Impaired fasting glucose Plan: fasting blood sugars in the past were elevated above 100 mg/dL. Impaired glucose metabolism makes you at risk for developing diabetes mellitus type 2, as well as heart attack and stroke later on. Lifestyle changes at just weight loss, healthy eating habits, and regular exercise are important, and can prevent the progression to diabetes Orders: Orders Alanine Aminotransferase 10/05/23 E78.5 - Hyperlipidemia, unspecified, I10 - Essential (primary) hypertension, R73.01 - Impaired fasting glucose Basic Metabolic Panel Fasting 10/05/23 E78.5 - Hyperlipidemia, unspecified, I10 - Essential (primary) hypertension, R73.01 - Impaired fasting glucose Lipid Panel 10/05/23 E78.5 - Hyperlipidemia, unspecified, I10 - Essential (primary) hypertension, R73.01 - Impaired fasting glucose Aspartate Amino Transferase 10/05/23 E78.5 - Hyperlipidemia, unspecified, I10 - Essential (primary) hypertension, R73.01 - Impaired fasting glucose Hemoglobin A1c 10/05/23 E78.5 - Hyperlipidemia, unspecified, I10 - Essential (primary) hypertension, R73.01 - Impaired fasting glucose Coding Level of Care Code Est Pt Level 4 (17283) Diagnoses Preoperative examination Z01.818 Dyslipidemia E78.5 Essential hypertension I10 Chronic obstructive pulmonary disease, unspecified COPD type J44.9 COPD type: unspecified COPD Osteoarthritis of knees, bilateral M17.0 Bipolar affective disorder, remission status unspecified F31.9 Active/Remission status: remission status unspecified Impaired fasting glucose R73.01
== END 2023-05-22 15:33 | disposition home or self-care (01) ==
PROVIDERS: PCP Internal Medicine; Visit Provider Internal Medicine
DX: J44.9 Chronic obstructive pulmonary disease, unspecified (principal); F31.9 Bipolar disorder, unspecified; Z01.818 Encounter for other preprocedural examination; E78.5 Hyperlipidemia, unspecified; I10 Essential (primary) hypertension; M17.0 Bilateral primary osteoarthritis of knee; R73.01 Impaired fasting glucose
CPT/HCPCS: 99214

== ENCOUNTER 2023-06-23 13:05 | Outpatient (AMB) | payer MEDICARE, OTHER, SELFPAY ==
--- NOTE | 2023-06-23 13:03 | A.OFFPC_ITS ---
Intake Visit Reasons: F/U Hair loss/Iron Check/Thyroid Check [phone] Intake Note: Pt is having a telehealth visit for hair loss/iron check/thyriod check (iphone) Allergies No Known Allergies Allergy (Verified 06/23/23 13:21) Medication List - Last Reconciled 06/23/23 by Betty Almaraz MD albuterol sulfate 90 mcg/actuation 1 puff inhalation Q6H PRN aspirin 81 mg PO DAILY rosuvastatin 5 mg PO Q2D 90 days telmisartan 40 mg PO BID umeclidinium-vilanterol 62.5-25 mcg/actuation (Anoro Ellipta) 1 inh inhalation DAILY Tobacco use date assessed: 06/23/23 Fall risk assessment: No Falls in past year Last assessed Fall Risk: 06/23/23 Dental Screening Dental Screen Date: 06/23/23 Did you have a dental visit in the last 12 months?: Yes Did you have a dental problem in the last 6 months where you did not have access to dental care?: No Was dental information given to patient?: Patient has dentist HPI F/U Hair loss/Iron Check/Thyroid Check [phone] HPI Details 72-year-old lady with history of impaire d fasting glucose, osteoarthritis, osteopenia of lumbar spine, dyslipidemia, COPD and essential hypertension, here today for follow-up. She has been compliant with taking m edications and tries to get regular exercise. She has been noticing thinning hair over the last several months but recent labs showed normal CBC, electrolytes, and vitamin-D level. She attributes her hair loss to having been under lot of stress this past 6 months, with a recent passing for sister Had a bone density scan done 04/05/2023 which showed presence of osteopenia in her lumbar spine and left femoral neck and normal in her left thigh. 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 History of arthroscopic knee surgery History of knee replacement History of tonsillectomy History of bilateral tubal ligation Family History Father History of CVA (cerebrovascular accident) Mother Osteoarthritis Brother Brain cancer Sister Cancer Social History Housing: Condominium Alcohol intake: current Alcohol intake frequency: holidays/special occasions only Patient Tobacco Use Status: Former Tobacco user Years Smoked: 45yrs e-Cigarette/Vaping Use: Never Used Current occupational status: retired Cognitive needs: No Hearing needs: No Vision needs: Yes Questionnaire Thrive Questionnaire Date Thrive assessed: 05/22/23 LEI-7 AMB Questionnaire LEI-7 Date LEI - 7 assessed: 05/22/23 Source: Developed by Drs. Guanakito Pagan, Henny Oreilly, Patrick Daniel and colleagues, with an educational sindy from [employer]. Review of Systems Const Denies fatigue, Denies headache(s) and Denies malaise Eyes Reports requires corrective lenses ENT Denies dizziness, Denies headache(s) and Denies nasal congestion Card Denies chest pain, Denies lightheadedness, Denies palpitations and Denies dyspnea Resp Denies cough and Denies dyspnea GI Denies abdominal pain, Denies change in bowel habits and Denies heartburn Denies urinary urgency Musc Denies back pain, Denies joint swelling, Denies muscle cramps and Reports stiffness Skin/Breast Denies lesions and Denies rash Neuro Denies dizziness and Denies headache(s) Psych Reports no additional complaints Endo Denies fatigue, Denies polydipsia, Denies polyuria and Denies palpitations Parvez/Lymph Reports no additional complaints Aller/Immun Reports no additional complaints Physical exam (Primary Care) Tobacco/Smoking Status: Tobacco use Status Tobacco use date assessed 06/23/23 06/23/23 13:04 Patient Tobacco Use Status Former Tobacco user 06/23/23 13:04 e-Cigarette/Vaping Use Never Used 06/23/23 13:04 Thrive Assessment: Date of Thrive Assessment Date Thrive assessed 05/22/23 06/23/23 13:04 Telehealth Telehealth Telehealth Platform: [facility] Location of provider rendering services: practice address Location of patient: address on file Patient Identification confirmed using: Name, : Yes Telehealth method: video Patient verbally consented to treatment: Yes Patient verbally consented to billing insurance company: Yes Patient informed of any privacy concerns related to visit: Yes Minutes spent on Phone/Video with Pt.: 15 Results Reviewed Results Reviewed: Name: Darlin Trujillo Age/Sex: 72/F : 1950 Unit#: [id number] Attend Dr: Betty Almaraz MD Re05/12/23 Status: DEP REF Location: [facility] Disch: SPEC : [id number] DONOVAN: 05/12/23 STATUS: COMP REQ : [id number] RECD: 05/12/[address]: Muriel Cantrell PA-C COMP: 05/12/23 ENTERED: 05/12/[address]: Betty Almaraz MD ORDERED: CBC Auto Diff Test Result Flag Reference WBC 7.5 4.8-10.8 X10*3/uL RBC 4.54 4.20-5.50 X10*6/uL HGB 14.2 12.0-16.0 g/dl HCT 44.1 37.0-47.0 % MCV 97.1 80.0-98.0 fL MCH 31.3 27.0-33.0 pg MCHC 32.2 31.0-35.0 g/dl RDW 14.4 11.0-16.0 % PLT 242 160-400 X10*3/uL MPV 9.4 9.4-12.3 fL Neut Pct Auto 67.2 45-73 % ImGran Pct Auto 0.4 0.0-0.4 % Lymp Pct Auto 17.9 L 20-40 % [place]atch Pct Auto 11.1 H 2-11 % Eos Pct Auto 2.9 0-4 % Baso Pct Auto 0.5 0-2 % NRBC Pct Auto 0.0 0.0-0.2 /100WBC ANC Neut Abs # 5.0 2.0-8.3 x10*3/uL ImGran Abs Auto 0.03 0.00-0.03 X10*3/uL Lymph Abs Auto 1.3 1.2-4.9 X10*3/uL [place]atch Abs Auto 0.8 0.1-1.2 X10*3/uL Eos Abs Auto 0.2 0.0-0.4 X10*3/uL Baso Abs Auto 0.0 0.0-0.2 X10*3/uL NRBC Abs Auto 0.000 0.0-0.012 X10*3/uL Name: Darlin Trujillo Age/Sex: 72/F : 1950 Unit#: [id number] Attend Dr: Betty Almaraz MD Re05/12/23 Status: DEP [facility]F [facility] Disch: SPEC : [id number] DONOVAN: 05/12/23 STATUS: COMP REQ : [id number] RECD: 05/12/23-[address]: Betty Almaraz MD COMP: 05/12/23 ENTERED: 05/12/[address]: ORDERED: Met Prof Fast, AST, ALT, Lipid Panel, Vitamin D 25-OH Test Result Flag Reference Sodium 139 135-145 mmol/L Potassium 4.4 3.3-5.1 mmol/L CL 105 96-108 mmol/L CO2 28 22-29 mmol/L Gap 10 L 12-20 BUN 15 9-16 mg/dL Creat 0.80 0.5-1.4 mg/dL EGFR > 60 NOTE: For -[place] individuals, multiply the result by 1.210. Chronic Kidney Disease: Estimated GFR < 60 mL/min/1. 73m2 Severe Kidney Disease: Estimated GFR < 15 mL/min/1.73m2 FBS 104 H 60-99 mg/dL A fasting glucose from 100-125 mg/dl is considered impaired (pre-diabetes). CA 9.1 8.4-10.2 mg/dL AST (GOT) 23 5-31 U/L ALT (GPT) 24 0-31 U/L Triglyceride 99 <150 mg/dL Desirable Triglyceride: less than 150 mg/dL Borderline High Triglyceride 150-199 mg/dL High Triglyceride: 200-499 mg/dL Very High Triglyceride: greater than or equal to 5OO mg/dL Cholesterol 177 <200 mg/dL Desirable Cholesterol: less than 200 mg/dL Borderline High Cholesterol: 200-239 mg/dL High Cholesterol: greater than 239 mg/dL LDL Calculated 104 H <100 mg/dL Desirable LDL: less than 100 mg/dL Near Optimal/Above Optimal LDL: 110-129 mg/dL Borderline High LDL: 130-159 mg/dL High LDL: 160-189 mg/dL Very High LDL: greater than or equal to 190 mg/dL HDL 54 >40 mg/dL Desirable HDL: greater than 40 mg/dL Note: This HDL assay may give artificially low results in patients with liver disease. Vit D 25-OH Tot 63.3 >30 ng/mL Health Based Reference Values* < 20 ng/mL Deficient 20-30 ng/mL Insufficient > 30 ng/mL Sufficient Laboratory Tests 05/12/23 08:52 Estimat Average Glucose 105 Hemoglobin A1c % 5.3 Assessment and Plan Assessment & Plan (1) Impaired fasting glucose: Code(s): R73.01 - Impaired fasting glucose Plan: Your fasting blood sugars was elevated above 100 mg/dL. Impaired glucose metabolism increases the risk for developing diabetes mellitus type 2, as well as heart attack and stroke later on. Lifestyle changes , weight loss, healthy eating habits, and regular exercise are important, and can prevent the progression to diabetes (2) Osteopenia of lumbar spine: Code(s): M85.88 - Other specified disorders of bone density and structure, other site Plan: 04/05/2023 bone density scan showed presence of osteopenia in her lower back and left femoral neck, with normal bone density in left femur. Patient advised to start taking [id number] vitamin D3 at 2000 units daily to keep levels up, and take adequate calcium from dietary sources. Stressed importance of doing regular weight-bearing exercise at least 30 minutes 3 to 4 times a week. Repeat bone density scan in 2025. (3) Dyslipidemia: Code(s): E78.5 - Hyperlipidemia, unspecified Plan: Latest fasting lipids are within normal limits, continue with rosuvastatin 5 mg 1 tablet taken every other day in addition to adherence to a low-cholesterol diet and staying active get regular exercise Coding Level of Care Code Tele Est Pt Level 4 (05385) Diagnoses Impaired fasting glucose R73.01 Osteopenia of lumbar spine M85.88 Dyslipidemia E78.5
== END 2023-06-23 14:24 | disposition home or self-care (01) ==
PROVIDERS: PCP Internal Medicine; Visit Provider Internal Medicine
DX: R73.01 Impaired fasting glucose (principal); M85.88 Other specified disorders of bone density and structure, other site; E78.5 Hyperlipidemia, unspecified
CPT/HCPCS: 99214

== ENCOUNTER 2023-09-05 12:49 | Outpatient (AMB) | payer MEDICARE, OTHER, SELFPAY ==
[2023-09-05 13:02] VITALS: BP 120/80; PULSE 63; O2SAT 98; BMI 32.0
--- NOTE | 2023-09-05 13:02 | A.OFFPC_ITS ---
Vital Signs 09/05/23 13:02 Height 5 ft 6.5 in Weight 201 lb BMI 32.0 BP 120/80 Blood Pressure Location Lt brachial Position Sitting Pulse 63 Pulse Source Pulse Oximeter Pulse Oximetry (%) 98 Oxygen Delivery Method Room Air Intake Visit Reasons: LowImmuneSystemResults Intake Note: Pt is here today f/u low immune system results Allergies No Known Allergies Allergy (Verified 09/05/23 13:03) Tobacco use date assessed: 09/05/23 Fall risk assessment: No Falls in past year Last assessed Fall Risk: 09/05/23 Dental Screening Dental Screen Date: 09/05/23 Did you have a dental visit in the last 12 months?: Yes Did you have a dental problem in the last 6 months where you did not have access to dental care?: Yes Was dental information given to patient?: Patient has dentist HPI LowImmuneSystemResults HPI Details 73-year-old lady with history of COPD, h ypertension, dyslipidemia, osteopenia, osteoarthritis, GERD and bipolar disorder, here today for follow-up. She has had multiple respiratory infections since summer of last year, while traveling [facility] every few weeks to help care for her sister at the end of her life. She had COVID 19 o last 09/20/2022, and had an acute exacerbation of her COPD last 10/26/2022 and another exacerbation last 04/26/2023. She was then seen by her senior information security architect, Dr. Lopez, who ordered immunoglobulin levels and a pulmonary function test. She was found to have mildly low immunoglobulin G level and has been referred to Allergy site identification specialist in [place] and has an appointment already scheduled with Dr. Alarcon on 10/20/2023. At present she has been feeling well with no further respiratory infections however she does report some exertional dyspnea when walking long distances or climbing stairs. Denies any accompanying chest pain, no palpitations, swelling, no fever chills or nasal congestion. 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 History of arthroscopic knee surgery History of knee replacement History of tonsillectomy History of bilateral tubal ligation Family History Father History of CVA (cerebrovascular accident) Mother Osteoarthritis Brother Brain cancer Sister Cancer Social History [facility]: [facility] Alcohol intake: current Alcohol intake frequency: holidays/special occasions only Patient Tobacco Use Status: Former Tobacco user Years Smoked: 45yrs e-Cigarette/Vaping Use: Never Used Current occupational status: retired Cognitive needs: No Hearing needs: No Vision needs: Yes Questionnaire PHQ-9 Over the last 2 weeks, how often have you been bothered by any of the following problems? 1. Little interest or pleasure in doing things: not at all 2. Feeling down, depressed, or hopeless: not at all 3. Trouble falling or staying asleep, or sleeping too much: not at all 4. Feeling tired or having little energy: not at all 5. Poor appetite or overeating: not at all 6. Feeling bad about yourself - or that you are a failure or have let yourself or your family down: not at all 7. Trouble concentrating on things, such as reading the newspaper or watching television: not at all 8. Moving or speaking so slowly that other people could have noticed. Or the opposite - being so fidgety or restless that you have been moving around a lot more than usual: not at all 9. Thoughts that you would be better off or of hurting yourself in some way: not at all Total score: 0 Depression Screening Interpretation: Negative Depression Screening Done: Yes 88105 - PHQ-9 Billing: Yes Source: Developed by Drs. Guanakito Pagan, Henny Oreilly, Patrick Daniel and colleagues, with an educational sindy from [employer]. Thrive Questionnaire Date Thrive assessed: 09/05/23 I am a: Patient What is your living situation today?: I have a steady place to live Within the past 12 months, did the food you bought not last and you didn't have the money to get more?: Never true Within the past 12 months, did you worry whether your food would run out before you got money to buy more?: Never true Do you have trouble paying for medicines?: No Do you have trouble getting transportation to medical appointments?: No Do you have trouble paying your heating and electricity bill?: No Do you have trouble taking care of your child, family member or friend?: No Do you have trouble with day-to-day activities such as bathing, preparing meals, shopping, managing finances, etc.?: No Are you currently unemployed and looking for a job?: I choose not to answer this question Are you interested in more education?: I choose not to answer this question Please select the resources that you would like help with: Housing/Intermediate Currently or been in a relationship where the following occur: No concerns reported THRIVE Score: 0 AUDIT C Alcohol Use Questionnaire (AUDIT-C) 1. How often do you have a drink containing alcohol?: Monthly or less 2. How many drinks containing alcohol do you have on a typical day when you are drinking?: 1 or 2 3. How often do you have six or more drinks on one occasion?: Never Total Score: 1 LEI-7 AMB Questionnaire LEI-7 Date LEI - 7 assessed: 09/05/23 Feeling nervous, anxious, or on edge: 0 = Not at all Not being able to stop or control worryin = Not at all Worrying too much about different things: 0 = Not at all Trouble relaxin = Not at all Being so restless that it is hard to sit still: 0 = Not at all Becoming easily annoyed or irritable: 0 = Not at all Feeling afraid as if something awful might happen: 0 = Not at all Total LEI-7 score (0-4 normal; 5-9 mild; 10-14 moderate; 15-21 severe): 0 Source: Developed by Drs. Guanakito Pagan, Henny Oreilly, Patrick Daniel and colleagues, with an educational sindy from [employer] LEI-7 Assessment Billing LEI-7 Assessment Tool: LEI-7 Assessment 65006 Review of Systems Const Denies fatigue, Denies headache(s) and Denies malaise Eyes Reports requires corrective lenses ENT Denies dizziness, Denies headache(s) and Denies nasal congestion Card Denies chest pain, Denies lightheadedness, Denies palpitations and Denies dyspnea Resp Denies cough and Denies dyspnea GI Denies abdominal pain, Denies change in bowel habits and Denies heartburn Denies urinary urgency Musc Denies back pain, Denies joint swelling, Denies muscle cramps and Reports stiffness Skin/Breast Denies lesions and Denies rash Neuro Denies dizziness and Denies headache(s) Psych Reports no additional complaints Endo Denies fatigue, Denies polydipsia, Denies polyuria and Denies palpitations Parvez/Lymph Reports no additional complaints Aller/Immun Reports no additional complaints Physical exam (Primary Care) Vital Signs: Last Vital Signs Pulse 63 09/05/23 13:02 BP 120/80 09/05/23 13:02 Pulse Ox 98 09/05/23 13:02 Oxygen Delivery Method Room Air 09/05/23 13:02 BMI result Body Mass Index 32.0 Tobacco/Smoking Status: Tobacco use Status Tobacco use date assessed 09/05/23 09/05/23 13:07 Patient Tobacco Use Status Former Tobacco user 09/05/23 13:07 e-Cigarette/Vaping Use Never Used 09/05/23 13:07 PHQ-9: PHQ-9 Score PHQ-9: Total score 0 09/05/23 13:48 Depression Screening Interpretation: Negative Thrive Assessment: Date of Thrive Assessment Date Thrive assessed 09/05/23 09/05/23 13:07 Currently or been in a relationship where the following occur: No concerns reported Const Other: Alert oriented x3, no acute distress noted ambulatory normal gait HENMT Head: Yes normocephalic General nose exam: Normal external nose present Face and sinus: Yes face symmetric Mouth: Normal oral and palatal mucosa present and moist mucous membranes Eyes General: appearance normal, both eyes and all related structures Pupils: Equal, round and reactive pupils present EOM: EOMs intact bilaterally Neck Neck: Yes full ROM, Yes no lymphadenopathy and Yes supple Resp Effort & Inspection: normal respiratory effort and able to speak in complete sentences Auscultation: clear to auscultation bilaterally Cardio Rate: regular rate Rhythm: regular rhythm Heart sounds: S1 normal heart sound present and S2 normal heart sound present GI Palpation (GI): Soft to palpation, nontender, no guarding and no masses Auscultation: normal bowel sounds Skin General skin exam: no rashes or lesions noted Neuro General: gait normal, moves all extremities and no focal motor deficits Cranial nerves: Yes Equal, round and reactive pupils present Cognition (Neuro): normal cognition Gait exam (Neuro): Normal gait present Motor exam (neuro): 5/5 motor strength present throughout Extrem Other: No gross before bony deformity noted no joint swelling seen Psych Appearance: grossly normal Mental Status: mental status grossly normal Speech and movement: Normal speech and movement present Affect: normal affect Attitude: cooperative Thought process: Normal thought process present Assessment and Plan Assessment & Plan (1) Immunoglobulin G deficiency: Code(s): D80.3 - Selective deficiency of immunoglobulin G [IgG] subclasses Plan: Patient already has an appointment scheduled with Dr. Cole on 10/20/2023 at [facility] [place] (2) COPD (chronic obstructive pulmonary disease): Comment: followed by Dr. Yeh Code(s): J44.9 - Chronic obstructive pulmonary disease, unspecified Qualifiers: COPD type: unspecified COPD Qualified Code(s): J44.9 - Chronic obstructive pulmonary disease, unspecified Plan: Continued on albuterol inhaler and Anoro Ellipta (3) Essential hypertension: Comment: sees Dr Viera Code(s): I10 - Essential (primary) hypertension Plan: Blood pressure at goal of less than 130/80. Continue telmisartan 40 mg 1 tablet twice a day. Reinforced importance of following a low sodium diet, getting regular exercise, and lowering stress levels. Coding Level of Care Code Est Pt Level 4 (60539) Complex EM visit Add On G2211 Diagnoses Immunoglobulin G deficiency D80.3 Chronic obstructive pulmonary disease, unspecified COPD type J44.9 COPD type: unspecified COPD Essential hypertension I10 Additional Codes LEI-7 Assessment Billing - LEI-7 Assessment Tool: LEI-7 Assessment 10516 ([id number])
== END 2023-09-05 14:18 | disposition home or self-care (01) ==
PROVIDERS: PCP Internal Medicine; Visit Provider Internal Medicine
DX: D80.3 Selective deficiency of immunoglobulin G [IgG] subclasses (principal); J44.9 Chronic obstructive pulmonary disease, unspecified; I10 Essential (primary) hypertension
CPT/HCPCS: 99214; G2211

== ENCOUNTER 2023-09-09 10:59 | Outpatient (AMB) | payer MEDICARE, OTHER, SELFPAY ==
--- OUTSIDE RECORDS SUMMARY | 2023-09-09 11:01 | XMS_ITS | Continuity of Care Document ---
Author Organization [facility] [employer] [facility] Address [address], [address] [place] [address]- Care Team Providers Care Sand Molder Name Role Phone Sung JAMES, Betty Ozuna Primary Care Physician [place] [facility] [place]): 05/29/21 - 09/26/21 [facility] [employer] [facility] [address], [address] [place] [address]- Attending Physician: Susan Capellan MD Admitting Physician: Susan Capellan MD Referring Physician: Betty Almaraz MD Allergies, Adverse Reactions, Alerts No Known Allergies Immunizations Given and Recorded Vaccine Date Status Refusal Reason SARS-CoV-2 (COVID-19) mRNA-1273 vaccine 05/15/21 R ecorded SARS-CoV-2 (COVID-19) mRNA-1273 vaccine 11/27/20 R ecorded influenza virus vaccine, inactivated 10/31/20 Thor rded influenza virus vaccine, inactivated 11/09/19 Thor rded influenza virus vaccine, inactivated 11/29/18 Thor rded influenza virus vaccine, inactivated 11/28/17 Thor rded influenza virus vaccine, inactivated 11/29/16 Thor rded influenza virus vaccine, inactivated 09/29/15 Thor rded influenza virus vaccine, inactivated 12/01/14 Thor rded influenza virus vaccine, inactivated 10/30/13 Thor rded zoster vaccine, inactivated 05/29/20 Recorded zoster vaccine, inactivated 06/05/18 Recorded SARS-CoV-2 (COVID-19) mRNA BNT-162b2 vac 04/29/20 Recorded SARS-CoV-2 (COVID-19) mRNA BNT-162b2 vac 04/08/20 Recorded pneumococcal 23-valent vaccine 05/29/18 Recorded pneumococcal 23-valent vaccine 1 11/17/11 Recorded pneumococcal 13-valent vaccine 02/14/17 Recorded hepatitis B adult vaccine 2 12/01/14 Recorded hepatitis B adult vaccine 06/23/14 Recorded hepatitis B adult vaccine 05/23/14 Recorded tetanus/diphtheria/pertussis, acel(Tdap) 04/03/14 Recorded Zoster Vaccine Live 11/06/12 Recorded Zoster Vaccine Live 12/13/11 Recorded Zoster Vaccine Live 12/08/11 Recorded 1Result Comment: [09/23/2015] riverbend 2Result Comment: [09/23/2015] riverbend Medications Albuterol (Eqv-ProAir HFA) 90 mcg/inh inhalation aerosol 2 puffs, Inhalation, Every 6 hours, PRN Wheezing/Shortness of Breath, # 18 Gm, 11 Refills, Maintenance, 09/09/21 14:09:00 EDT, [id number], Partial fill upon patient request if the prescription is for a schedule II opioid drug., 2 puff... Start Date: 09/09/21 Status: Ordered amLODIPine 5 mg oral tablet 5 mg, 1, tablet, By Mouth, Daily, Refills 0, Maintenance, 01/28/20 13:09:00 EST, Partial fill upon patient request if the prescription is for a schedule II opioid drug. Start Date: 01/28/20 Status: Ordered aspirin 81 mg oral tablet, chewable 81 mg, 1, tablet, Daily, Refills 0, Maintenance, 01/28/20 13:10:00 EST, Partial fill upon patient request if the prescription is for a schedule II opioid drug. Start Date: 01/28/20 Status: Ordered calcium (as carbonate) 500 mg oral tablet, chewable 1 tablet = 500 mg, Daily, 0 Refills, Maintenance, 01/28/20 13:11:00 EST, Partial fill upon patient request if the prescription is for a schedule II opioid drug. Start Date: 01/28/20 Status: Ordered cyclobenzaprine 5 mg oral tablet 1 tablet = 5 mg, By Mouth, 3 times a day, # 30 tablet, 0 Refills, Maintenance, 01/28/20 13:12:00 EST, Tablet, Partial fill upon patient request if the prescription is for a schedule II opioid drug. Start Date: 01/28/20 Stop Date: 02/07/20 Status: Ordered fluticasone/umeclidinium/vilanterol 100 mcg-62.5 mcg-25 mcg/inh inhalation powder 1 puffs, Inhalation, Every 24 hours, rinse mouth and throat after use, # 60 each, 11 Refills, Maintenance, 09/09/21 14:03:00 EDT, Powder, [facility][id number], Partial fill upon patient request if the prescription is for a schedule II opioid drÁlvaro.. Start Date: 09/09/21 Status: Ordered Pravachol 20 mg oral tablet 20 mg, 1, tablet, By Mouth, Daily, Refills 0, Maintenance, 09/09/21 13:54:00 EDT, Partial fill uponpatient request if the prescription is for a schedule II opioid drug. Start Date: 09/09/21 Status: Ordered Spacer for albuterol inhaler Spacer for albuterol inhaler, See Instructions, # 1 each, Refills 0, Tot. Refills 0, Maintenance, Use with albuterol inhaler, 09/09/21 14:07:00 EDT, Supply, 167, cm, 09/09/21 13:52:00 EDT, Height, 98.5, kg, 04/12/21 13:15:00 EST, Dry Weight Start Date: 09/09/21 Status: Ordered Toprol XL 50 mg oral tablet, extended release 50 mg, 1, tablet, By Mouth, Daily, Refills 0, Maintenance, 01/28/20 13:10:00 EST, Partial fill uponpatient request if the prescription is for a schedule II opioid drug. Start Date: 01/28/20 Status: Ordered Problem List Condition Effective Dates Status Health Status Inform ant Atrophic vaginitis(Confirmed) Active Bipolar disease, chronic(Confirmed) Active Chronic obstructive pulmonar y disease(Confirmed) Active Diverticulitis(Confirmed) Active Erosive lichen planus of vulva(Confirmed) Active GERD (gastroesophageal reflu x disease)(Confirmed) Active Hypertension(Confirmed) Active LBP (low back pain)(Confirmed) Active Obese class I(Confirmed) Active ANDRES (obstructive sleep apnea)(Confirmed) Active Osteopenia(Confirmed) Active Tobacco abuse- E cigarette 06/17(Confirmed) Active Other urinary incontinence(Confirmed) Active Social History Social History Type Response Smoking Status Former smoker; Tobac co user in household: No; Other: Pt smokes E-cigarrets; entered on: 09/07/16 Sex
--- OUTSIDE RECORDS SUMMARY | 2023-09-09 11:01 | XMS_ITS | Continuity of Care Document ---
Author Organization [facility] Address [address] [place] [id number]- Care Team Providers Care Interactive Video Technician Name Role Phone Sung JAMES, Betty Ozuna Primary Care Physician [place] [facility] [place] 05/23/19 - 06/02/19 [facility] [address] [place] [address] [facility] Attending Physician: AdmChase [email or web address] Admitting Physician: AdmtrCandice Referring Physician: Admtr, Ar8 Allergies, Adverse Reactions, Alerts Substance Reaction Severity Status NKA Active Immunizations Given and Recorded Vaccine Date Status Refusal Reason influenza virus vaccine, inactivated 12/01/14 Thor rded hepatitis B adult vaccine 1 12/01/14 Recorded tetanus/diphtheria/pertussis, acel(Tdap) 04/03/14 Recorded Zoster Vaccine Live 12/08/11 Recorded pneumococcal 23-valent vaccine 2 11/17/11 Recorded 1Result Comment: [09/23/2015] jimmie 2Result Comment: [09/23/2015] jimmie Medications amLODIPine 2.5 mg oral tablet 2.5 mg, 1, tablet, By Mouth, Daily, # 30 tablet, Refills 0, Tot. Refills 0, Maintenance, 03/24/19 15:36:00 EST, Route to Pharmacy Electronically, [facility]/pharmacy #[id number], 170, cm, 03/24/19 8:00:00 EST, Height, 87.8, kg, 03/24/19 4:33:00 EST, Dry Weight Start Date: 03/24/19 Status: Ordered aspirin 81 mg oral delayed release tablet 81 mg, 1, tablet, By Mouth, Daily, at 12 noon, # 30 tablet, Refills 0, Maintenance, 03/24/19 5:45:00 EST Start Date: 03/24/19 Status: Ordered AutoCPAP of 8-10 cm H2O with heated humidification AutoCPAP of 8-10 cm H2O with heated humidification, See Instructions, # 1 each, Refills 0, Tot. Refills 0, Maintenance, use overnight and naps from [facility], 05/21/18 16:24:36 EDT, Compound Start Date: 05/21/18 Status: Ordered Pepcid 20 mg oral tablet 1 tablet = 20 mg, By Mouth, Daily, PRN Dyspepsia, # 30 tablet, 0 Refills, Maintenance, 03/24/19 10:46:00 EST, Tablet Start Date: 03/24/19 Status: Ordered ProAir HFA 90 mcg/inh inhalation aerosol with adapter 1, puffs, Inhalation, Every 6 hours, PRN, j44.9, # 1 each, Refills 1, Tot. Refills 1, Maintenance, 04/10/19 15:05:00 EST, Aerosol, Route to Pharmacy Electronically, [id number], [facility]/pharmacy #[id number], ICD code J44.9, 170, cm, ... Start Date: 04/10/19 Status: Ordered rosuvastatin 5 mg oral capsule 1 capsule = 5 mg, By Mouth, Every Monday and , # 30 capsule, 0 Refills, Maintenance, 03/24/19 5:43:00 EST, Capsule Start Date: 03/24/19 Status: Ordered Spiriva Respimat 2.5 mcg/inh inhalation aerosol 2 puffs, Inhalation, Daily, # 3 each, 3 Refills, Maintenance, 04/14/17 11:29:00, Aerosol, 90 Day Supply. ICD-10: J44.9, 2 puffs Inhalation Daily Start Date: 04/14/17 Status: Ordered Toprol XL 50 mg oral tablet, extended release 50 mg, 1, tablet, By Mouth, Daily, at 12 noon, # 30 tablet, Refills 0, Maintenance, 03/24/19 5:46:00 EST Start Date: 03/24/19 Status: Ordered Problem List Condition Effective Dates Status Health Status Inform ant Atrophic vaginitis(Confirmed) Active Bipolar disease, chronic(Confirmed) Active COPD(Confirmed) Active Diverticulitis(Confirmed) Active Erosive lichen planus of vulva(Confirmed) Active GERD (gastroesophageal reflu x disease)(Confirmed) Active Hypertension(Confirmed) Active LBP (low back pain)(Confirmed) Active ANDRES (obstructive sleep apnea)(Confirmed) Active Osteopenia(Confirmed) Active Tobacco abuse- E cigarette 06/17(Confirmed) Active Other urinary incontinence(Confirmed) Active Social History Social History Type Response Smoking Status Former smoker; Tobac co user in household: No; Other: Pt smokes E-cigarrets; entered on: 09/07/16 Sex
--- OUTSIDE RECORDS SUMMARY | 2023-09-09 11:01 | XMS_ITS | Continuity of Care Document ---
Author Organization [facility] Address [address] [place] [id number]- Care Team Providers Care Machine Joiner Cementer Name Role Phone Sung JAMES, Betty Ozuna Primary Care Physician [place] [facility] [place] [facility] [address] [place] [phone]- [facility] Attending Physician: AdmChase [email or web address] Admitting Physician: AdmtrCandice [...] [09/23/2015] jimmie 2Result Comment: [09/23/2015] jimmie Medications aspirin 81 mg oral tablet 1 tablet = 81 mg, By Mouth, Daily, 0 Refills, Maintenance, 04/18/18 15:18:04 EDT Start Date: 04/18/18 Status: Ordered AutoCPAP of 8-10 cm H2O with heated humidification AutoCPAP of 8-10 cm H2O with heated humidification, See Instructions, # 1 each, Refills 0, Tot. Refills 0, Maintenance, use overnight and naps from [facility], 05/21/18 16:24:36 EDT, Compound Start Date: 05/21/18 Status: Ordered Benicar 20 mg oral tablet By Mouth, 1-2 times a day, # 30 tablet, 0 Refills, Maintenance, 11/26/13 15:27:55, Tablet Start Date: 11/26/13 Status: Ordered Calcium Citrate Tablet 950 mg, By Mouth, 2 times a day, Refills 0, Maintenance, 09/01/15 11:08:16 Start Date: 09/01/15 Status: Ordered clonazePAM 1 mg oral tablet 1 tablet = 1 mg, By Mouth, 3 times a day, Fax to [facility] [place] [phone] Do not fill before 05/22/2018, # 90 tablet, 3 Refills, Maintenance, 08/05/18 15:14:00 EDT, Tablet Start Date: 08/05/18 Stop Date: 12/03/18 Status: Ordered Coenzyme Q10 By Mouth, 0 Refills, Maintenance, 09/01/15 11:08:25 Start Date: 09/01/15 Status: Ordered Magnesium Citrate By Mouth, Daily, 0 Refills, Maintenance, 02/28/18 15:10:14 EST Start Date: 02/28/18 Status: Ordered Multivitamin Tablet By Mouth, Daily, 0 Refills, Maintenance, 11/09/15 15:09:37 Start Date: 11/09/15 Status: Ordered NuLYTELY with Flavor Packs oral powder for reconstitution 240 mL, By Mouth, Every 10 minutes, # 4,000 mL, 0 Refills, Maintenance, 12/11/18 10:29:29 EST, REC Powder, 240 mL By Mouth Every 10 minutes Start Date: 12/11/18 Status: Ordered Omeprazole = 20 mg, By Mouth, prn, 0 Refills, Maintenance, 04/24/14 8:52:41 Start Date: 04/24/14 Status: Ordered prasugrel 10 mg oral tablet = 20 mg, By Mouth, 0 Refills, Maintenance, 02/28/18 15:18:01 EST Start Date: 02/28/18 Status: Ordered ProAir HFA 90 mcg/inh inhalation aerosol with adapter 1, puffs, Inhalation, Every 6 hours, PRN, # 8.5 Gm, Refills 6, Tot. Refills 6, Maintenance, 03/01/18 17:09:00 EST, Aerosol, Route to Pharmacy Electronically, [id number], [facility]/pharmacy #[id number], ICD code J44.9 Start Date: 03/01/18 Status: Ordered simvastatin 20 mg oral tablet 1 tablet = 20 mg, By Mouth, Daily at bedtime, 0 Refills, Maintenance Start Date: 07/28/11 Status: Ordered Spiriva Respimat 2.5 mcg/inh inhalation aerosol 2 puffs, Inhalation, Daily, # 3 each, 3 Refills, Maintenance, 04/14/17 11:29:00, Aerosol, 90 Day Supply. ICD-10: J44.9, 2 puffs Inhalation Daily Start Date: 04/14/17 Status: Ordered Symbicort 160mcg/4.5mcg Inhaler 2, puffs, Inhalation, 2 times a day, # 3 each, Refills 4, Tot. Refills 4, Maintenance, 02/12/19 15:35:00 EST, Aerosol, Route to Pharmacy Electronically, [id number], [id number] , 167, cm, 02/12/19... Start Date: 02/12/19 Status: Ordered tiotropium 2.5 mcg/inh inhalation aerosol 2 puffs, Inhalation, Daily, # 3 each, 3 Refills, Maintenance, 02/12/19 15:35:00 EST, [facility]/pharmacy #[id number], 167, cm, 02/12/19 15:13:00 EST, Height Start Date: 02/12/19 Status: Ordered Tylenol Arthritis Tylenol Arthritis, Refills 0, Maintenance, prn, 04/27/17 14:13:46, Compound Start Date: 04/27/17 Status: Ordered Vitamin D3 5000 intl units oral capsule 1 capsule = 5,000 International_Units, By Mouth, Daily, 0 Refills, Maintenance, 09/01/15 11:08:04 Start Date: 09/01/15 Status: Ordered Vitamin K Vitamin K, Refills 0, Maintenance, 09/07/16 14:21:44, Compound Start Date: 09/07/16 Status: Ordered Problem List Condition Effective Dates [...]
--- OUTSIDE RECORDS SUMMARY | 2023-09-09 11:01 | XMS_ITS | Continuity of Care Document ---
Author Organization [facility] Address [address] [address]- Care Team Providers Care Guest Relation Officer Name Role Phone Sung JAMES, Betty Ozuna Primary Care Physician Encounter [facility] Date(s): 07/05/23 - 08/04/23 [facility] [address] [place] [id number] Allergies, Adverse Reactions, Alerts No Known Allergies [...] Vaccine Live 12/08/11 Recorded 1Result Comment: [09/23/2015] josebend 2Result Comment: [09/23/2015] riverbend Medications Albuterol (Eqv-ProAir HFA) 90 mcg/inh inhalation aerosol 2 puffs, Inhalation, Every 4 hours, PRN Wheezing/Shortness of Breath, # 8 Gm, 11 Refills, Maintenance, 07/19/22 10:19:00 EDT, [facility]/pharmacy #[id number], Partial fill upon patient request if the prescriptionis for a schedule II opioid drug., 2 puffs Inhalati... Start Date: 07/19/22 Status: Ordered amLODIPine 5 mg oral tablet 5 mg, 1, tablet, By Mouth, Daily, Refills 0, Maintenance, 01/28/20 13:09:00 EST, Partial fill upon patient request if the prescription is for a schedule II opioid drug. Start Date: 01/28/20 Status: Ordered Anoro Ellipta 62.5 mcg-25 mcg/inh inhalation powder 1 puffs, Inhalation, Daily, j44.9, # 3 each, 3 Refills, Maintenance, 02/23/23 16:35:00 EST, Powder,[facility], Partial fill upon patient request if the prescription is for a schedule II opioid drug., 1 puffs Inhalation Daily,Instr:j44.9, 16... Start Date: 02/23/23 Status: Ordered aspirin 81 mg oral tablet, chewable 81 mg, 1, tablet, Daily, Refills 0, Maintenance, 01/28/20 13:10:00 EST, Partial fill upon patient request if the prescription is for a schedule II opioid drug. Start Date: 01/28/20 Status: Ordered predniSONE 5 mg oral tablet See Instructions, 07/12-5/5-4/4-3/3-2/2-1/1 tablets 2 days each, # 42 tablet, 0 Refills, Maintenance,04/24/23 8:54:00 EDT, [facility]/pharmacy #[id number], Partial fill upon patient request if the prescription is for a schedule II opioid drug., 169, cm, 04/24/23 8:... Start Date: 04/24/23 Status: Ordered rosuvastatin 5 mg oral tablet 1 tablet = 5 mg, By Mouth, Every Monday, Monday and Monday, 0 Refills, Maintenance, 07/19/22 10:09:00 EDT, Partial fill upon patient request if the prescription is for a schedule II opioid drug. Start Date: 07/19/22 Status: Ordered Spacer for albuterol inhaler Spacer for albuterol inhaler, See Instructions, # 1 each, Refills 0, Tot. Refills 0, Maintenance, Use with albuterol inhaler, 09/09/21 14:07:00 EDT, Supply, 167, cm, 09/09/21 13:52:00 EDT, Height, 98.5, kg, 04/12/21 13:15:00 EST, Dry Weight Start Date: 09/09/21 Status: Ordered telmisartan 40 mg oral tablet 1 tablet = 40 mg, By Mouth, 2 times a day, 0 Refills, Maintenance, 07/19/22 10:10:00 EDT, Partial fill upon patient request if the prescription is for a schedule II opioid drug. 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 Other urinary incontinence Confirmed Active Social History Social History Type Response Smoking Status Former smoker; Tobac co user in household: No; Other: Pt smokes E-cigarrets; entered on: 09/07/16 Sex Patient Care team information Care Team Personnel Name: Teena Newell Position: S Outreach Member Role: Lifetime Consulting Physician Name: Sung JAMES , Betty Ozuna Position: Reference Physician Member Role: PCP Address: Address: [address] [place] [address]- Care Team Related Persons Name: JHONATAN ROSEN Address: [place] [address] Name: KENYON HUTCHINS Address: home [address] [place] [address] Name: JHONATAN OVALLE Address: home [address] [place] [address]
--- OUTSIDE RECORDS SUMMARY | 2023-09-09 11:01 | XMS_ITS | Continuity of Care Document ---
Author Organization [facility] Address [address], [address] [place] [address]- Care Team Providers Care Antique Collector Name Role Phone Sung JAMES, Betty Ozuna Primary Care Physician Encounter [facility] [place] Date(s): 08/27/21 - 09/26/21 [facility] [address] [place], [place] [address] Attending Physician: AdmChase [email or web address] Admitting Physician: AdmtrCandice Referring Physician: Admtr, Ar8 Allergies, Adverse Reactions, Alerts No Known Allergies [...] Gm, 11 Refills, Maintenance, 09/09/21 14:09:00 EDT[id number], Partial fill upon patient request if the [...] 11 Refills, Maintenance, 09/09/21 14:03:00 EDT, Powder, [facility] #[id number], Partial fill upon patient request if the prescription is for a schedule II opioid . Start Date: 09/09/21 Status: Ordered Pravachol 20 [...]
--- OUTSIDE RECORDS SUMMARY | 2023-09-09 11:01 | XMS_ITS | Continuity of Care Document ---
Author Organization [facility] Address [address] [place] [address]- Care Team Providers Care Carousel Attendant Name Role Phone Sung JAMES, Betty Ozuna Primary Care Physician [place] [facility] [place] 04/01/23 [facility] [address] [place] [id number] Attending Physician: Christian Dietrich MD Admitting Physician: Christian Dietrich MD Referring Physician: Betty Almaraz MD Allergies, [...] Gm, 11 Refills, Maintenance, 07/19/22 10:19:00 EDT, [facility]/pharmacy #[id number], Partial fill upon patient request [...] Maintenance, 02/23/23 16:35:00 EST, Powder,[facility] , Partial fill upon patient request if the prescription is for a schedule II opioid drug., 1 puffs Inhalation Daily,Instr:j44.9, 16... Start Date: 02/23/23 Status: Ordered aspirin 81 mg oral tablet, chewable 81 mg, 1, tablet, Daily, Refills 0, Maintenance, 01/28/20 13:10:00 EST, Partial fill upon patient request if the prescription is for a schedule II opioid drug. 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 Other urinary incontinence Confirmed Active Social History Social History Type Response Smoking Status Former smoker; Tobac co user in household: No; Other: Pt smokes E-cigarrets; entered on: 09/07/16 Sex Patient Care team information Care Team Personnel Name: Teena Newell Position: [facility] Outreach Member Role: Lifetime Consulting Physician Name: Sung JAMES , Betty Ozuna Position: Reference Physician Member Role: PCP Address: Address: [address] [place] [address]- Care Team Related Persons Name: JHONATAN ROSEN Address: [address] [place] [address] Name: KENYON HUTCHINS Address: [address] [place] [address] Name: JHONATAN OVALLE Address: [address] [place] [address]
--- OUTSIDE RECORDS SUMMARY | 2023-09-09 11:01 | XMS_ITS | Continuity of Care Document ---
Author Organization [facility] [employer] [facility] Address [address], [address] [place] [address]- Care Team Providers Care Manager Workers Compensation Name Role Phone Sung JAMES, Betty Ozuna Primary Care Physician Encounter [facility] Date(s): 06/17/21 - 07/17/21 [facility] [place] Jessica[facility] [employer] [address], [address] [place], [place] [address] Allergies, Adverse Reactions, Alerts No Known Allergies Immunizations Given and Recorded Vaccine Date Status Refusal Reason influenza virus vaccine, inactivated 12/01/14 Thor rded hepatitis B adult vaccine 1 12/01/14 Recorded tetanus/diphtheria/pertussis, acel(Tdap) 04/03/14 Recorded Zoster Vaccine Live 12/08/11 Recorded pneumococcal 23-valent vaccine 2 11/17/11 Recorded 1Result Comment: [09/23/2015] riverbend 2Result Comment: [09/23/2015] riverbesparkle Medications Albuterol (Eqv-ProAir HFA) 90 mcg/inh inhalation aerosol 2 puffs, Inhalation, Every 6 hours, PRN Wheezing/Shortness of Breath, # 1 each, 11 Refills, Maintenance, 06/29/20 11:35:00 EDT, Partial fill upon patient request if the prescription is for a scheduleII opioid drug. Start Date: 06/29/20 Status: Ordered amLODIPine 2.5 mg oral tablet 2.5 mg, 1, tablet, By Mouth, Daily, # 30 tablet, Refills 0, Tot. Refills 0, Maintenance, 03/24/19 15:36:00 EST, Route to Pharmacy Electronically, [facility]/pharmacy #[id number], 170, cm, 03/24/19 8:00:00 EST, Height, 87.8, kg, 03/24/19 4:33:00 EST, Dry Weight Start Date: 03/24/19 Status: Ordered amLODIPine 5 mg oral tablet [...] opioid drug. Start Date: 01/28/20 Status: Ordered Belsomra 10 mg oral tablet 1 tablet = 10 mg, By Mouth, Daily at bedtime, 0 Refills, Maintenance, 01/28/20 13:13:00 EST, Partial fill upon patient request if [...] Date: 01/28/20 Stop Date: 02/07/20 Status: Ordered estradiol 0.1 mg/g vaginal cream = 1 Gm, Vaginally, Daily at bedtime, take every night for two weeks then twice weekly, # 30 Gm, 11 Refills, Maintenance, 01/25/21 13:46:00 EST, [facility] #[id number], Partial fill upon patient request if the prescription is for a schedule II opi... Start Date: 01/25/21 Status: Ordered omeprazole 20 mg oral delayed release tablet 1 tablet = 20 mg, By Mouth, Daily, # 90 tablet, 2 Refills, Maintenance, 06/23/20 8:38:00 EDT, EC Tablet, [facility]/pharmacy #[id number], Partial fill upon patient request if the prescription is for a schedule IIopioid drug., 169, cm, 02/13/20 11:27:00 EST, Heigh... Start Date: 06/23/20 Stop Date: 03/20/21 Status: Ordered rosuvastatin 5 mg oral capsule 1 capsule = 5 mg, By Mouth, Daily, 0 Refills, Maintenance, 01/28/20 13:11:00 EST, Partial fill uponpatient request if the prescription is for a schedule II opioid drug. Start Date: 01/28/20 Status: Ordered Spiriva Respimat 60 ACT 2.5 mcg/inh inhalation aerosol 2 puffs, Inhalation, Daily, # 3 each, 3 Refills, Maintenance, 06/29/20 11:33:00 EDT, [facility]/pharmacy #[id number], Partial fill upon patient request if the prescription is for a schedule II opioid drug., 169, cm, 06/29/20 11:02:00 EDT, Height, 89.9, kg, ... Start Date: 06/29/20 Status: Ordered Toprol XL 50 mg oral [...] LBP (low back pain)(Confirmed) Active Obese class II(Confirmed) Active ANDRES (obstructive sleep apnea)(Confirmed) Active Osteopenia(Confirmed) Active Tobacco abuse- E cigarette 06/17(Confirmed) Active Other urinary incontinence(Confirmed) Active Social History Social History Type Response Smoking Status Former smoker; Tobac co user in household: No; Other: Pt smokes E-cigarrets; entered on: 09/07/16 Sex
--- OUTSIDE RECORDS SUMMARY | 2023-09-09 11:01 | XMS_ITS | Continuity of Care Document ---
Author Organization [facility] Address [address] [place] [address]- Care Team Providers Care Legal Secretary Receptionist Name Role Phone Sung JAMES, Betty Ozuna Primary Care Physician [facility] Date(s): 10/01/19 - 10/01/[address] [address]- [facility] Discharge Disposition: A-D/C Walkout Attending Physician: Not on Staff, Attending MD Admitting Physician: Not on Staff, Admitting MD Referring Physician: Not on Staff, Referring MD Allergies, Adverse Reactions, Alerts Substance Reaction Severity [...] 03/24/19 15:36:00 EST, Route to Pharmacy Electronically, [facility]/pharmacy #[id number], 170, cm, 03/24/19 8:00:00 EST, [...] EDT, Compound Start Date: 05/21/18 Status: Ordered NuLYTELY with Flavor Packs oral powder for reconstitution 240 mL, By Mouth, Every 10 minutes, # 4,000 mL, 0 Refills, Maintenance, 06/27/19 16:50:00 EDT, REC Powder, [facility]/pharmacy #[id number], 240 mL By Mouth Every 10 minutes, 170, cm, 03/24/19 8:00:00 EST, Height,87.8, kg, 03/24/19 4:33:00 EST, Dry Weight Start Date: 06/27/19 Status: Ordered omeprazole 40 mg oral enteric coated capsule 1 capsule = 40 mg, By Mouth, Daily, # 30 capsule, 5 Refills, Maintenance, 08/13/19 15:14:00 EDT, ECCapsule, [facility]/pharmacy #[id number], 161.6, cm, 08/13/19 13:09:00 EDT, Height, 87.8, kg, 03/24/19 4:33:00 EST, Dry Weight Start Date: 08/13/19 Status: Ordered Pepcid 20 mg oral tablet [...] 15:05:00 EST, Aerosol, Route to Pharmacy Electronically, [id number], [facility]/pharmacy #[id number], ICD code J44.9, 170, cm, [...] cigarette 06/17(Confirmed) Active Other urinary incontinence(Confirmed) Active Vital Signs Most recent to oldest [Reference Range]: 1 Height 169 cm (10/01/19 2:15 PM) Weight 89.9 kg (10/01/19 2:15 PM) Oxygen Saturation [94-100 %] 100 % (10/01/19 2:15 PM) Pulse Rate [55-90 bpm] 51 bpm *L* (10/01/19 2:15 PM) Body Mass Index [18.5-24.99] 31.48 *>HHI* (10/01/19 2:15 PM) Blood Pressure [90-138/55-84 mm Hg] 187/ 86mm Hg *H* (10/01/19 2:15 PM) Respiratory Rate [16-30 br/min] 18 br/mi n (10/01/19 2:15 PM) Temperature [96.8-100.4 DegF] 98.2 DegF (10/01/19 2:15 PM) Mode of Delivery (Oxygen) Room air (10/01/19 2:15 PM) Blood pressure sites Arm, right (10/01/19 2:15 PM) Temperature Route Oral (10/01/19 2:15 PM) Dry Weight 89.9 kg (10/01/19 2:15 PM) Weight Obtained Via Standing scale (10/01/19 2:15 PM) Dry Weight Obtained Via Standing scale (10/01/19 2:15 PM) Social History Social History Type Response Smoking Status Former smoker; Tobac co user in household: No; Other: Pt smokes E-cigarrets; entered on: 09/07/16 Sex
--- OUTSIDE RECORDS SUMMARY | 2023-09-09 11:01 | XMS_ITS | Continuity of Care Document ---
Author Organization [facility] Address [address], [address] [place] [address]- Care Team Providers Care Manufacturing Maintenance Mechanic Name Role Phone Sung JAMES, Betty Ozuna Primary Care Physician [facility]counter [facility] Date(s): 07/27/22 - 08/26/22 [facility] [address] [place], [place] [address] Allergies, Adverse Reactions, Alerts No Known [...] Gm, 11 Refills, Maintenance, 07/19/22 10:19:00 EDT, [facility]/pharmacy #[id number], Partial fill upon patient request if [...] mcg/inh inhalation powder 1 puffs, Inhalation, Daily, # 30 each, 11 Refills, Maintenance, 07/19/22 10:19:00 EDT, Powder, [facility]/pharmacy #[id number], Partial fill upon patient request if the prescription is for a schedule II opioid drug., 1 puffs Inhalation Daily, 167, cm, 07/19/22 10:... Start Date: 07/19/22 Status: Ordered aspirin 81 mg oral tablet, [...] Care Team Personnel Name: Teena Newell Position: [facility] Outreach Member Role: Lifetime Consulting Physician Name: Sung JAMES , Betty Ozuna Position: Reference Physician Member Role: PCP Address: Address: [address] [place] [address]- Name: Siria Armstrong Position: [facility] TA Member Role: Lifetime Consulting Physician Care Team Related Persons Name: JHONATAN ROSEN Address: home [address] [place], [place] Name: KENYON HUTCHINS Address: home [address] [place] [address] Name: JHONATAN OVALLE Address: [address] [place] [address]
--- OUTSIDE RECORDS SUMMARY | 2023-09-09 11:01 | XMS_ITS | Continuity of Care Document ---
Author Organization [facility] Address [address] [place] [address]- Care Team Providers Care Production Gear Cutter Name Role Phone Sung JAMES, Betty Ozuna Primary Care Physician Encounter [facility] Date(s): 06/24/20 - 07/24/20 [facility] [address] [id number] Attending Physician: Candice Brown Admitting Physician: AdmtrCandice Referring Physician: AdmtrCandice Allergies, Adverse Reactions, Alerts Substance Reaction Severity Status NKA Active Immunizations Given and Recorded Vaccine Date Status Refusal Reason influenza virus vaccine, inactivated 12/01/14 Thor rded hepatitis B adult vaccine 1 12/01/14 Recorded tetanus/diphtheria/pertussis, acel(Tdap) 04/03/14 Recorded Zoster Vaccine Live 12/08/11 Recorded pneumococcal 23-valent vaccine 2 11/17/11 Recorded 1Result Comment: [09/23/2015] jimmie 2Result Comment: [09/23/2015] jimmie Medications Albuterol (Eqv-ProAir HFA) 90 mcg/inh inhalation [...] 03/24/19 15:36:00 EST, Route to Pharmacy Electronically, [facility]/pharmacy #[id number], 170, cm, 03/24/19 8:00:00 [...] Date: 01/28/20 Stop Date: 02/07/20 Status: Ordered omeprazole 20 mg oral delayed release tablet 1 tablet = 20 mg, By Mouth, Daily, # 90 tablet, 2 Refills, Maintenance, 06/23/20 8:38:00 EDT, EC Tablet, [facility]/pharmacy #[id number], Partial fill upon patient request if the prescription is for a schedule IIopioid drug., 169, cm, 02/13/20 11:27:00 EST, Heigh... Start Date: 06/23/20 Stop Date: 2/12/22 Status: Ordered rosuvastatin 5 mg oral capsule 1 capsule = 5 mg, By Mouth, Daily, 0 Refills, Maintenance, 01/28/20 13:11:00 EST, Partial fill uponpatient request if the prescription is for a schedule II opioid drug. Start Date: 01/28/20 Status: Ordered Spiriva Respimat 60 ACT 2.5 mcg/inh inhalation aerosol 2 puffs, Inhalation, Daily, # 3 each, 3 Refills, Maintenance, 06/29/20 11:33:00 EDT, [facility]/pharmacy #[id number], Partial fill upon patient request if [...]
--- OUTSIDE RECORDS SUMMARY | 2023-09-09 11:01 | XMS_ITS | Continuity of Care Document ---
Author Organization [facility] Address [address] [place] [address]- Care Team Providers Care Medical Equipment Technician Name Role Phone Sung JAMES, Betty Ozuna Primary Care Physician [facility]counter [facility] Date(s): 01/11/22 - 02/10/22 [facility] [address] [place] [address]- [place] Allergies, Adverse Reactions, Alerts No Known Allergies [...] Gm, 11 Refills, Maintenance, 09/09/21 14:09:00 EDT, [facility] #[id number], Partial fill upon patient request if the [...] Daily, # 30 each, 11 Refills, Maintenance, 12/07/21 16:52:00 EDT, Powder, [facility]/pharmacy #[id number], Partial fill upon patient request if the prescription is for a schedule II opioid drug., 1 puffs Inhalation Daily, 167, cm, 09/09/21 13:... Start Date: 12/07/21 Status: Ordered aspirin 81 mg oral tablet, [...] Date: 01/28/20 Stop Date: 02/07/20 Status: Ordered Pravachol 20 mg oral tablet [...] Date: 01/28/20 Status: Ordered Problem List Condition Confirmation Course [...] Physician Member Role: PCP Address: Address: [address] [place] [address]- [place] Care Team Related Persons Name: JHONATAN ROSEN Address: [address] [place] [address] Name: KENYON HUTCHINS Address: [address] [place] [address] Name: JHONATAN OVALLE Address: [address] [place] [address]
--- OUTSIDE RECORDS SUMMARY | 2023-09-09 11:01 | XMS_ITS | Continuity of Care Document ---
Author Organization [facility] Address [address], [address] [place] [address]- Care Team Providers Care Prototype Assembler Electronics Name Role Phone Sung JAMES, Betty Ozuna Primary Care Physician Encounter [facility] Date(s): 05/04/21 - 06/03/21 [facility] [address] [place], [place] [address] Allergies, Adverse Reactions, Alerts No Known Allergies [...] 03/24/19 15:36:00 EST, Route to Pharmacy Electronically, [facility]/pharmacy #[id number], 170, cm, 03/24/19 8:00:00 EST, Height, 87.8, [...] Gm, 11 Refills, Maintenance, 01/25/21 13:46:00 EST, [facility] #[id number], Partial fill upon patient request if the prescription is for a schedule II opi... Start Date: 01/25/21 Status: Ordered omeprazole 20 mg oral delayed release tablet 1 tablet = 20 mg, By Mouth, Daily, # 90 tablet, 2 Refills, Maintenance, 06/23/20 8:38:00 EDT, EC Tablet, [facility]/pharmacy #[id number], Partial fill upon patient request [...] each, 3 Refills, Maintenance, 06/29/20 11:33:00 EDT, [facility]/pharmacy #[id number], Partial fill upon patient request [...]
--- OUTSIDE RECORDS SUMMARY | 2023-09-09 11:01 | XMS_ITS | Continuity of Care Document ---
Author Organization [facility] Address [address] [place] [address]- Care Team Providers Care Outside Plant Field Engineer Name Role Phone Sung JAMES, Betty Ozuna Primary Care Physician [facility]counter [facility] Date(s): 12/16/21 - 01/15/22 [facility] [address] [place] [address] Allergies, Adverse Reactions, Alerts No Known Allergies [...] Gm, 11 Refills, Maintenance, 09/09/21 14:09:00 EDT, [facility] #[id number], Partial fill upon patient request if the [...] 11 Refills, Maintenance, 12/07/21 16:52:00 EDT, Powder, [facility]/pharmacy #[id number], Partial fill upon patient request if the [...] opioid drug. Start Date: 09/09/21 Status: Ordered predniSONE 10 mg oral tablet See Instructions, 2 tablets By Mouth Daily for 5 days then 1 tablet by mouth daily for 5 days, # 15tablet, 0 Refills, Maintenance, 12/19/21 9:53:00 EST, [facility]/pharmacy #[id number], Partial fill upon patientrequest if the prescription is for a schedule II op... Start Date: 12/19/21 Status: Ordered Spacer for albuterol inhaler Spacer [...] sleep apnea) Confirmed Active Osteopenia Confirmed Active Tobacco abuse- E cigarette 06/17 Confirmed Active Other urinary incontinence Confirmed Active Social History Social History Type Response Smoking Status Former smoker; Tobac co user in household: No; Other: Pt smokes E-cigarrets; entered on: 09/07/16 Sex Patient Care team information Care Team Personnel Name: Teena Newell Position: [facility] Outreach Member Role: Lifetime Consulting Physician Name: Sung JAMES , Betty Ozuna Position: Reference Physician Member Role: PCP Address: Address: [address] [place] [address]- Care Team Related Persons Name: JHONATAN ROSEN Address: [address] [place] [address] Name: KENYON HUTCHINS Address: [address] [place] [address] Name: JHONATAN OVALLE Address: [address] [place] [address]
--- OUTSIDE RECORDS SUMMARY | 2023-09-09 11:01 | XMS_ITS | Continuity of Care Document ---
Author Organization [facility] Address [address] [place] [address]- Care Team Providers Care Is Technician Name Role Phone Sung JAMES, Betty Ozuna Primary Care Physician Encounter [facility] Date(s): 06/29/20 - 07/29/20 [facility] [address] [address] Attending Physician: Candice Brown Admitting Physician: [...] 03/24/19 15:36:00 EST, Route to Pharmacy Electronically, [facility]/pharmacy #[id number], 170, cm, 03/24/19 8:00:00 EST, Height, [...] Refills, Maintenance, 06/23/20 8:38:00 EDT, EC Tablet, [facility]/pharmacy #[id number], Partial fill upon patient request if [...] each, 3 Refills, Maintenance, 06/29/20 11:33:00 EDT, [facility]/pharmacy #[id number], Partial fill upon patient request if [...]
--- OUTSIDE RECORDS SUMMARY | 2023-09-09 11:01 | XMS_ITS | Continuity of Care Document ---
Author Organization [facility] Address [address] [place] [address]- Care Team Providers Care Supervisor Receiving And Processing Name Role Phone Sung JAMES, Betty Ozuna Primary Care Physician Encounter [facility] Date(s): 06/29/19 - 07/29/19 [facility] [address] [place] [address]- [facility] Attending Physician: Candice Brown Admitting Physician: AdmCandice antony Referring Physician: AdmtrCandice Allergies, Adverse Reactions, Alerts [...] 03/24/19 15:36:00 EST, Route to Pharmacy Electronically, [facility]/pharmacy #[id number], 170, cm, 03/24/19 8:00:00 EST, Height, [...] Refills, Maintenance, 06/27/19 16:50:00 EDT, REC Powder, [facility]/pharmacy #[id number], 240 mL By Mouth Every 10 minutes, 170, cm, 03/24/19 8:00:00 EST, Height,87.8, kg, 03/24/19 4:33:00 EST, Dry Weight Start Date: 06/27/19 Status: Ordered Pepcid 20 mg oral tablet [...] 15:05:00 EST, Aerosol, Route to Pharmacy Electronically, [id number], [facility]/pharmacy #[id number], ICD code J44.9, 170, cm, ... [...]
--- OUTSIDE RECORDS SUMMARY | 2023-09-09 11:01 | XMS_ITS | Continuity of Care Document ---
Author Organization [facility] Address [address] [place] [address]- Care Team Providers Care Apprentice Carpenter Name Role Phone Sung JAMES, Betty Ozuna Primary Care Physician Encounter [facility] Date(s): 09/22/20 - 10/22/20 [facility] [address] [place] [address]- Allergies, Adverse Reactions, Alerts Substance Reaction Severity [...] 03/24/19 15:36:00 EST, Route to Pharmacy Electronically, [facility]/pharmacy #[id number], 170, cm, 03/24/19 8:00:00 EST, Height, 87.8, [...] Refills, Maintenance, 06/23/20 8:38:00 EDT, EC Tablet, [facility]/pharmacy #0630, Partial fill upon patient request if the prescription is for a schedule IIopioid drug., 169, cm, 02/13/20 11:27:00 EST, Agatha... Start Date: 06/23/20 Stop Date: 03/20/21 Status: [...] each, 3 Refills, Maintenance, 06/29/20 11:33:00 EDT, [facility]/pharmacy #[id number], Partial fill upon patient request if the [...]
--- OUTSIDE RECORDS SUMMARY | 2023-09-09 11:01 | XMS_ITS | Continuity of Care Document ---
Author Organization [facility] [employer] [facility] Address [address] [facility] [address], [address] [place] [address]- Care Team Providers Care Oncology Coordinator Name Role Phone Sung JAMES, Betty Ozuna Primary Care Physician Encounter [facility] Date(s): 04/29/21 - 05/29/21 [facility] [employer] [facility] [address] [place], [place] [address] Allergies, Adverse Reactions, Alerts No Known [...] 15:36:00 EST, Route to Pharmacy Electronically, [facility]/pharmacy #[id number], 170, cm, 03/24/19 8:00:00 EST, Height, 87.8, [...] Gm, 11 Refills, Maintenance, 01/25/21 13:46:00 EST, [facility] #[id number], Partial fill upon patient request if the prescription is for a schedule II opi... Start Date: 01/25/21 Status: Ordered omeprazole 20 mg oral delayed release tablet 1 tablet = 20 mg, By Mouth, Daily, # 90 tablet, 2 Refills, Maintenance, 06/23/20 8:38:00 EDT, EC Tablet, [facility]/pharmacy #[id number], Partial fill upon patient request if [...] each, 3 Refills, Maintenance, 06/29/20 11:33:00 EDT, [facility]/pharmacy #[id number], Partial fill upon patient request if [...]
--- OUTSIDE RECORDS SUMMARY | 2023-09-09 11:01 | XMS_ITS | Continuity of Care Document ---
Author Organization [facility] Address [address] [place] [address]- Care Team Providers Care Battery Checker Name Role Phone Sung JAMES, Betty Ozuna Primary Care Physician [facility]counter [facility] Date(s): 05/27/20 - 06/26/20 [facility] [address] [place] [address]- Allergies, Adverse Reactions, Alerts Substance Reaction Severity [...] 15:36:00 EST, Route to Pharmacy Electronically, [facility]/pharmacy #[id number], 170, cm, 03/24/19 8:00:00 EST, [...] Maintenance, 06/23/20 8:38:00 EDT, EC Tablet, [facility]/pharmacy #[id number], Partial fill upon patient request if the prescription is for a schedule IIopioid drug., 169, cm, 02/13/20 11:27:00 EST, Agatha... Start Date: 06/23/20 Stop Date: 03/20/21 Status: Ordered ProAir HFA Inhalation, Every 6 hours, 0 Refills, Maintenance, 01/28/20 13:12:00 EST, Partial fill upon patientrequest if the prescription is for a schedule II opioid drug. Start Date: 01/28/20 Status: Ordered rosuvastatin 5 mg oral capsule 1 capsule = 5 mg, By Mouth, Daily, 0 Refills, Maintenance, 01/28/20 13:11:00 EST, Partial fill uponpatient request if the prescription is for a schedule II opioid drug. Start Date: 01/28/20 Status: Ordered Spiriva HandiHaler = 18 mcg, Inhalation, Daily, 0 Refills, Maintenance, 01/28/20 13:11:00 EST, Partial fill upon patient request if the prescription is for a schedule II opioid drug. Start Date: 01/28/20 Status: Ordered Toprol XL 50 mg oral tablet, extended release 50 mg, 1, tablet, By Mouth, Daily, Refills 0, Maintenance, 01/28/20 13:10:00 EST, Partial fill uponpatient request if the prescription is for a schedule II opioid drug. Start Date: 01/28/20 Status: Ordered Tramadol By Mouth, 0 Refills, Maintenance, 01/28/20 13:12:00 EST, Partial fill upon patient request if [...]
--- OUTSIDE RECORDS SUMMARY | 2023-09-09 11:01 | XMS_ITS | Continuity of Care Document ---
Author Organization [facility] Address [address] [place] [address]- Care Team Providers Care Commissions Coordinator Name Role Phone Sung JAMES, Betty Ozuna Primary Care Physician [place] [facility] [place](s[place] 06/29/20 - 07/06/20 [facility] [address] [place] [address]- Encounter Diagnosis Chronic obstructive pulmonary disease(Discharge Diagnosis) - 06/29/20 History of tobacco use disorder(Discharge Diagnosis) - 06/29/20 Attending Physician: Rao JAMES, Mike Bullock Allergies, Adverse Reactions, Alerts Substance Reaction Severity [...] 03/24/19 15:36:00 EST, Route to Pharmacy Electronically, [facility]/pharmacy #[id number], 170, cm, 03/24/19 8:00:00 EST, [...] Refills, Maintenance, 06/23/20 8:38:00 EDT, EC Tablet, [facility]/pharmacy #[id number], Partial fill upon patient request [...] each, 3 Refills, Maintenance, 06/29/20 11:33:00 EDT, [facility]/pharmacy #[id number], Partial fill upon patient request [...] cigarette 06/17(Confirmed) Active Other urinary incontinence(Confirmed) Active Diagnosis Diagnosis Type Effective Dates Health Status Clinical Service Informant Chronic obstructive pulmonary disease Discharge Diagnosis 06/29/20 History of tobacco use disorder Discharge Diagnosis 06/29/20 Vital Signs Most recent to oldest [Reference Range]: 1 Height 169 cm (06/29/20 11:02 AM) Weight 97.9 kg (06/29/20 11:02 AM) Oxygen Saturation [94-100 %] 97 % (06/29/20 11:02 AM) Pulse Rate [55-90 bpm] 47 bpm *L* (06/29/20 11:02 AM) Body Mass Index [18.5-24.99] 34.28 *>HHI* (06/29/20 11:02 AM) Blood Pressure [90-138/55-84 mm Hg] 133/ 72mm Hg (06/29/20 11:02 AM) Temperature [96.8-100.4 DegF] 96.2 DegF *L* (06/29/20 11:02 AM) Mode of Delivery (Oxygen) Room air (06/29/20 11:02 AM) Blood pressure sites Arm, left (06/29/20 11:02 AM) Weight Obtained Via Bed scale (06/29/20 11:02 AM) Social History Social History Type Response Smoking Status Former smoker; Tobac co user in household: No; Other: Pt smokes E-cigarrets; entered on: 09/07/16 Sex
--- OUTSIDE RECORDS SUMMARY | 2023-09-09 11:01 | XMS_ITS | Continuity of Care Document ---
Author Organization [facility] Address [address] [place] [address]- Care Team Providers Care Motor Home Electrical Foreman Name Role Phone Sung JAMES, Betty Ozuna Primary Care Physician En[place] [facility] [place] Date(s): 10/21/20 - 11/20/20 [facility] [address] [place] [address]- Attending Physician: AdmCandice antony Admitting Physician: Admtr, Ar8 Referring Physician: Admtr, Ar8 Allergies, Adverse Reactions, [...] 03/24/19 15:36:00 EST, Route to Pharmacy Electronically, [facility]/pharmacy #[id number], 170, cm, 03/24/19 8:00:00 EST, Height, [...] Refills, Maintenance, 06/23/20 8:38:00 EDT, EC Tablet, [facility]/pharmacy #[id number], Partial fill upon patient request if the [...] each, 3 Refills, Maintenance, 06/29/20 11:33:00 EDT, [facility]/pharmacy #[id number], Partial fill upon patient request if [...]
--- OUTSIDE RECORDS SUMMARY | 2023-09-09 11:01 | XMS_ITS | Continuity of Care Document ---
Author Organization [facility] Address [address] [place] [address]- Care Team Providers Care House Nurse Name Role Phone Sung JAMES, Betty Ozuna Primary Care Physician [place] [facility] [place] 03/01/23 - 04/01/23 [facility] [address] [place] [id number] Attending Physician: Christian Dietrich MD [...] Gm, 11 Refills, Maintenance, 07/19/22 10:19:00 EDT, [facility]/pharmacy #[id number], Partial fill upon patient request [...] Care Team Personnel Name: Teena Newell Position: [facility] Outreach Member Role: Lifetime Consulting Physician Name: Sung JAMES , Betty Ozuna Position: Reference Physician Member Role: PCP Address: Address: [address] [place] [address]- Care Team Related Persons Name: JHONATAN ROSEN Address: [address] [place] [address] Name: KENYON HUTCHINS Address: home [address] [place] [address] Name: JHONATAN OVALLE Address: [address] [place] [address]
--- OUTSIDE RECORDS SUMMARY | 2023-09-09 11:01 | XMS_ITS | Continuity of Care Document ---
Author Organization [facility] ed[facility] Address [address] [address]- Care Team Providers Care Research Professor Name Role Phone Sung JAMES, Betty Ozuna Primary Care Physician Encounter [facility] Date(s): 08/25/22 - 09/24/22 [facility] [address] [place] [id number] Allergies, Adverse Reactions, Alerts No Known [...] Vaccine Live 12/08/11 Recorded 1Result Comment: [09/23/2015] janessand 2Result Comment: [09/23/2015] riverbend Medications Albuterol (Eqv-ProAir HFA) 90 mcg/inh inhalation aerosol 2 puffs, Inhalation, Every 4 hours, PRN Wheezing/Shortness of Breath, # 8 Gm, 11 Refills, Maintenance, 07/19/22 10:19:00 EDT, [facility]/pharmacy #[id number], Partial fill upon [...] 11 Refills, Maintenance, 07/19/22 10:19:00 EDT, Powder, [facility]/pharmacy #[id number], Partial fill upon [...] Care team information Care Team Personnel Name: OsirisTeena sow [facility] Outreach Member Role: Lifetime Consulting Physician Name: Sung JAMES , Betty Ozuna Position: Reference Physician Member Role: PCP Address: Address: [address] [place] [address]- Name: Siria Armstrong Position[facility] TA Member Role: Lifetime Consulting Physician Care Team Related Persons Name: JHONATAN ROSEN Address: [address] [place], [place] Name: KENYON HUTCHINS Address: [address] [place] [address] Name: JHONATAN OVALLE Address: [address] [place] [address]
--- OUTSIDE RECORDS SUMMARY | 2023-09-09 11:01 | XMS_ITS | Continuity of Care Document ---
Author Organization [facility] Address [address] [place] [address]- Care Team Providers Care Wire Harness Design Engineer Name Role Phone Sung JAMES, Betty Ozuna Primary Care Physician Encounter [facility] [place] Date(s): 08/04/21 - 09/03/21 [facility] [address] [place] [id number] Allergies, Adverse Reactions, Alerts No Known Allergies Immunizations Given and Recorded Vaccine Date Status Refusal Reason influenza virus vaccine, inactivated 12/01/14 Thor rded hepatitis B adult vaccine 1 12/01/14 Recorded tetanus/diphtheria/pertussis, acel(Tdap) 04/03/14 Recorded Zoster Vaccine Live 12/08/11 Recorded pneumococcal 23-valent vaccine 2 11/17/11 Recorded 1Result Comment: [09/23/2015] josebend 2Result Comment: [09/23/2015] jimmie Medications Albuterol (Eqv-ProAir [...] 15:36:00 EST, Route to Pharmacy Electronically, [facility]/pharmacy #[id number], 170, cm, 03/24/19 [...] opioid drug. Start Date: 01/28/20 Status: Ordered Azithromycin 5 Day Dose Pack 250 mg oral tablet 1 pack/packet, By Mouth, Once, # 6 tablet, 0 Refills, Soft Stop, 08/04/21 20:00:00 EDT, Tablet, [facility] #[id number], Partial fill upon patient request if the prescription is for a schedule IIopioid drug., 167, cm, 04/12/21 13:15:00 EST, Heigh... Start Date: 08/04/21 Status: Ordered Belsomra 10 mg oral tablet [...] Gm, 11 Refills, Maintenance, 01/25/21 13:46:00 EST, [facility] #[id number], Partial fill upon patient request if the prescription is for a schedule II opi... Start Date: 01/25/21 Status: Ordered omeprazole 20 mg oral delayed release tablet 1 tablet = 20 mg, By Mouth, Daily, # 90 tablet, 2 Refills, Maintenance, 06/23/20 8:38:00 EDT, EC Tablet, [facility]/pharmacy #[id number], Partial fill upon patient [...] 3 Refills, Maintenance, 06/29/20 11:33:00 EDT, [facility]/pharmacy #[id number], Partial fill upon patient [...]
--- OUTSIDE RECORDS SUMMARY | 2023-09-09 11:01 | XMS_ITS | Continuity of Care Document ---
Author Organization [facility] Address [address], [address] [place] [address]- Care Team Providers Care Audit Clerk Name Role Phone Sung JAMES, Betty Ozuna Primary Care Physician [place] [facility] [place] 08/26/21 [facility] [address] [place], [place] [address] Attending Physician: Susan Capellan MD Admitting Physician: [...] 15:36:00 EST, Route to Pharmacy Electronically, [facility]/pharmacy #[id number], 170, cm, 03/24/19 8:00:00 EST, [...] Refills, Soft Stop, 08/04/21 20:00:00 EDT, Tablet, [facility] #[id number], Partial fill upon patient request if the prescription is for a schedule IIopioid drug., 167, cm, 04/12/21 13:15:00 EST, Agatha... Start Date: 08/04/21 Status: Ordered Belsomra 10 [...] Gm, 11 Refills, Maintenance, 01/25/21 13:46:00 EST, [facility] #[id number], Partial fill upon patient request if the prescription is for a schedule II opi... Start Date: 01/25/21 Status: Ordered omeprazole 20 mg oral delayed release tablet 1 tablet = 20 mg, By Mouth, Daily, # 90 tablet, 2 Refills, Maintenance, 06/23/20 8:38:00 EDT, EC Tablet, [facility]/pharmacy #[id number], Partial fill upon patient request [...] 3 Refills, Maintenance, 06/29/20 11:33:00 EDT, [facility]/pharmacy #[id number], Partial fill upon patient request if the prescription is for a schedule II opioid drug., 169, cm, 06/29/20 11:02:00 EDT, Height, 89.9, kg, 2... Start Date: 06/29/20 Status: Ordered Toprol XL [...]
--- OUTSIDE RECORDS SUMMARY | 2023-09-09 11:01 | XMS_ITS | Continuity of Care Document ---
Author Organization [facility] Address [address] [place] [address]- Care Team Providers Care Auxiliary Equipment Tender Name Role Phone Sung JAMES, Betty Ozuna Primary Care Physician Encounter [facility] Date(s): 03/01/23 - 03/31/23 [facility] [address] [place] [id number] Allergies, Adverse Reactions, Alerts No Known [...] Gm, 11 Refills, Maintenance, 07/19/22 10:19:00 EDT, [facility]/pharmacy #[id number], Partial fill upon patient request if the [...] Maintenance, 02/23/23 16:35:00 EST, Powder,[facility], Partial fill upon patient request if the [...] Physician Member Role: PCP Address: Address: [address] [place] [address]- Care Team Related Persons Name: JHONATAN ROSEN Address: [address] [place] [address] Name: KENYON HUTCHINS Address: home [address] [place] [address] Name: JHONATAN OVALLE Address: [address] [place] [address]
--- OUTSIDE RECORDS SUMMARY | 2023-09-09 11:02 | XMS_ITS | Continuity of Care Document ---
Author Organization [facility] Address [address] [place] [address]- Care Team Providers Care Inspector Rough Castings Name Role Phone Sung JAMES, Betty Ozuna Primary Care Physician Encounter [facility] [place] Date(s): 03/11/20 - 04/10/20 [facility] [address] [place], [place] [address] Attending Physician: Candice Brown Admitting Physician: Candice Brown Referring Physician: AdmtrCandice Allergies, Adverse Reactions, Alerts [...] 03/24/19 15:36:00 EST, Route to Pharmacy Electronically, [facility]/pharmacy #[id number], 170, cm, 03/24/19 8:00:00 EST, [...] tablet = 20 mg, By Mouth, Daily, 0 Refills, Maintenance, 01/28/20 13:11:00 EST, Partial fill uponpatient request if the prescription is for a schedule II opioid drug. Start Date: 01/28/20 Status: Ordered ProAir HFA Inhalation, Every 6 [...]
--- OUTSIDE RECORDS SUMMARY | 2023-09-09 11:02 | XMS_ITS | Continuity of Care Document ---
Author Organization [facility] Address [address], [address] [place] [address]- Care Team Providers Care Encapsulator Name Role Phone Sung JAMES, Betty Ozuna Primary Care Physician [place] [facility] [place]11[place] - 06/10/21 [facility] [address] [place], [place] [address] Allergies, Adverse Reactions, Alerts No [...] 03/24/19 15:36:00 EST, Route to Pharmacy Electronically, [facility]/pharmacy #[id number], 170, cm, 03/24/19 8:00:00 EST, Height, 87.8, [...] Gm, 11 Refills, Maintenance, 01/25/21 13:46:00 EST, [facility] #[id number], Partial fill upon patient request if the prescription is for a schedule II opi... Start Date: 01/25/21 Status: Ordered omeprazole 20 mg oral delayed release tablet 1 tablet = 20 mg, By Mouth, Daily, # 90 tablet, 2 Refills, Maintenance, 06/23/20 8:38:00 EDT, EC Tablet, [facility]/pharmacy #[id number], Partial fill upon patient request [...] each, 3 Refills, Maintenance, 06/29/20 11:33:00 EDT, [facility]/pharmacy #[id number], Partial fill upon patient request [...]
--- OUTSIDE RECORDS SUMMARY | 2023-09-09 11:02 | XMS_ITS | Continuity of Care Document ---
Author Organization [facility] Pulmonary M ed[facility] Address [address] [place] [address]- Care Team Providers Care Professor Of Sociology Name Role Phone Sung JAMES, Betty Ozuna Primary Care Physician Encounter [facility] Date(s): 05/01/23 - 05/31/23 [facility] [address] [place] [id number] Allergies, Adverse Reactions, Alerts No Known [...] Gm, 11 Refills, Maintenance, 07/19/22 10:19:00 EDT, [facility]/pharmacy #[id number], Partial fill upon patient request if [...] 42 tablet, 0 Refills, Maintenance,04/24/23 8:54:00 EDT, [facility]/pharmacy #[id number], Partial fill upon patient request if [...] Outreach Member Role: Lifetime Consulting Physician Name: uSng JAMES , Betty Ozuna Position: Reference Physician Member Role: PCP Address: Address: [address] [place] [address]- Care Team Related Persons Name: JHONATAN ROSEN Address: [place] [address] Name: KENYON HUTCHINS Address: [address] [place] [address] Name: JHONATAN OVALLE Address: [address] [place] [address]
--- OUTSIDE RECORDS SUMMARY | 2023-09-09 11:02 | XMS_ITS | Continuity of Care Document ---
Author Organization [facility] Pul[facility] ed[facility] Address [address] [place] [address]- Care Team Providers Care Receiver Bulk System Name Role Phone Sung JAMES, Betty Ozuna Primary Care Physician Encounter [facility] Date(s): 12/06/21 - 01/05/22 [facility] [address] [place] [address] Allergies, Adverse Reactions, Alerts [...] Gm, 11 Refills, Maintenance, 09/09/21 14:09:00 EDT, [facility] #[id number], Partial fill upon patient request if the [...] 11 Refills, Maintenance, 12/07/21 16:52:00 EDT, Powder, [facility]/pharmacy #[id number], Partial fill upon patient request if the [...] 15tablet, 0 Refills, Maintenance, 12/19/21 9:53:00 EST, [facility]/pharmacy #[id number], Partial fill upon patientrequest if the [...] Osteopenia Confirmed Active Tobacco abuse- E cigarette 5/12 Confirmed Active Other urinary incontinence Confirmed Active [...] Physician Member Role: PCP Address: Address: [address] [place] [address]- Care Team Related Persons Name: JHONATAN ROSEN Address: [address] [place] [address] Name: KENYON HUTCHINS Address: [address] [place] [address] Name: JHONATAN OVALLE Address: [address] [place] [address]
--- OUTSIDE RECORDS SUMMARY | 2023-09-09 11:02 | XMS_ITS | Continuity of Care Document ---
Author Organization [facility] [employer] [facility] Address [address] [facility], [address] [place] [address]- Care Team Providers Care Needle Felt Making Machine Operator Name Role Phone Sung JAMES, Betty Ozuna Primary Care Physician [facility]counter [facility] Date(s): 05/04/21 - 06/03/21 [facility] [address] [facility] [place], [place] [address] Allergies, Adverse Reactions, Alerts [...] 03/24/19 15:36:00 EST, Route to Pharmacy Electronically, [facility]/pharmacy #[id number], 170, cm, 03/24/19 8:00:00 EST, Height, 87.8, [...] Gm, 11 Refills, Maintenance, 01/25/21 13:46:00 EST, [facility] #[id number], Partial fill upon patient request if the prescription is for a schedule II opi... Start Date: 01/25/21 Status: Ordered omeprazole 20 mg oral delayed release tablet 1 tablet = 20 mg, By Mouth, Daily, # 90 tablet, 2 Refills, Maintenance, 06/23/20 8:38:00 EDT, EC Tablet, [facility]/pharmacy #[id number], Partial fill upon patient request if [...] each, 3 Refills, Maintenance, 06/29/20 11:33:00 EDT, [facility]/pharmacy #[id number], Partial fill upon patient request if [...]
--- OUTSIDE RECORDS SUMMARY | 2023-09-09 11:02 | XMS_ITS | Continuity of Care Document ---
Author Organization [facility] [facility] Address [address] [facility], [address] [place] [address]- Care Team Providers Care Greenhouse Instructor Name Role Phone Sung JAMES, Betty Ozuna Primary Care Physician [place] [facility] [place]): [place] - 02[facility]04/21 [facility] [address] 4th [address] [place], [place] [address] Attending Physician: AdmCandice antony Admitting Physician: AdmtrCandice Referring Physician: AdmtrCandice Allergies, [...] 15:36:00 EST, Route to Pharmacy Electronically, [facility]/pharmacy #[id number], 170, cm, 03/24/19 8:00:00 EST, Height, [...] Gm, 11 Refills, Maintenance, 01/25/21 13:46:00 EST, [facility] #[id number], Partial fill upon patient request if the prescription is for a schedule II opi... Start Date: 01/25/21 Status: Ordered omeprazole 20 mg oral delayed release tablet 1 tablet = 20 mg, By Mouth, Daily, # 90 tablet, 2 Refills, Maintenance, 06/23/20 8:38:00 EDT, EC Tablet, [facility]/pharmacy #[id number], Partial fill upon patient request if [...] 3 Refills, Maintenance, 06/29/20 11:33:00 EDT, [facility]/pharmacy #[id number], Partial fill upon patient request if [...]
--- OUTSIDE RECORDS SUMMARY | 2023-09-09 11:02 | XMS_ITS | Continuity of Care Document ---
Author Organization [facility] Address [address] [place] [address]- Care Team Providers Care Tack Maker Name Role Phone Sung JAMES, Betty Ozuna Primary Care Physician [place] [facility] [place] [place]/13/[place] - 08/13/[address] [address] [facility] Discharge Disposition: A-D/C Home Attending Physician: Klever Cee MD Admitting Physician: Klever Cee MD Referring Physician: Klever Cee MD Allergies, Adverse Reactions, Alerts Substance Reaction [...] EST, Route to Pharmacy Electronically, [facility]/pharmacy #[id number], 170, cm, 03/24/19 8:00:00 EST, Height, [...] Refills, Maintenance, 06/27/19 16:50:00 EDT, REC Powder, [facility]/pharmacy #[id number], 240 mL By Mouth Every 10 minutes, 170, cm, 03/24/19 8:00:00 EST, Height,87.8, kg, 03/24/19 4:33:00 EST, Dry Weight Start Date: 06/27/19 Status: Ordered omeprazole 40 mg oral enteric coated capsule 1 capsule = 40 mg, By Mouth, Daily, # 30 capsule, 5 Refills, Maintenance, 08/13/19 15:14:00 EDT, ECCapsule, [facility]/pharmacy #[id number], 161.6, cm, 08/13/19 13:09:00 EDT, Height, [...] 15:05:00 EST, Aerosol, Route to Pharmacy Electronically, [id number], [facility]/pharmacy #[id number], ICD code J44.9, 170, cm, .. Start Date: 04/10/19 Status: Ordered rosuvastatin 5 [...] cigarette 06/17(Confirmed) Active Other urinary incontinence(Confirmed) Active Procedures Procedure Date Related Diagnosis Body Site Status Colonoscopy, flexible; with biopsy, single or multiple 08/13/19 Completed Upper gastrointestinal endoscopy 08/13/19 Completed Vital Signs Most recent to oldest [Reference Range]: 1 2 3 Height 161.6 cm (08/13/19 1:09 PM) Weight 90.7 kg (08/13/19 1:09 PM) Oxygen Saturation [94-100 %] 100 % (08/13/19 2:29 PM) 100 % (08/13/19 2:19 PM) 100 % (08/13/19 1:09 PM) Pulse Rate [55-90 bpm] 47 bpm *L* (08/13/19 1:09 PM) Body Mass Index [18.5-24.99] 34.73 *>HHI* (08/13/19 1:09 PM) Blood Pressure [90-138/55-84 mm Hg] 145/80mm Hg *H* (08/13/19 2:29 PM) 119/61mm Hg (08/13/19 2:19 PM) 140/83mm Hg *H* (08/13/19 1:09 PM) Respiratory Rate [16-30 br/min] 18 br/min (08/13/19 2:29 PM) 18 br/min (08/13/19 2:19 PM) 18 br/min (08/13/19 1:09 PM) Temperature [96.8-100.4 DegF] 98.1 DegF (08/13/19 1:09 PM) Mode of Delivery (Oxygen) Room air (08/13/19 2:29 PM) Room air (08/13/19 2:19 PM) Room air (08/13/19 1:09 PM) Temperature Route Temporal (08/13/19 1:09 PM) Social History Social History Type Response Smoking Status Former smoker; Tobac co user in household: No; Other: Pt smokes E-cigarrets; entered on: 09/07/16 Sex
--- OUTSIDE RECORDS SUMMARY | 2023-09-09 11:02 | XMS_ITS | Continuity of Care Document ---
Author Organization [facility] Address [address] [facility], [address] [place] [address]- Care Team Providers Care Telemetry Tech Name Role Phone Sung JAMES, Betty Ozuna Primary Care Physician [place] [facility] [place] [facility]25[place] - [facility] [address] [facility]th [address] [place], [place] [address] Attending Physician: AdmCandice antony Admitting Physician: AdmCandice antony Referring Physician: AdmtrCandice Allergies, Adverse Reactions, Alerts No Known Allergies [...] EST, Route to Pharmacy Electronically, [facility]/pharmacy #[id number], 170, cm, 03/24/19 8:00:00 [...] Gm, 11 Refills, Maintenance, 01/25/21 13:46:00 EST, [facility] #[id number], Partial fill upon patient request if the prescription is for a schedule II opi... Start Date: 01/25/21 Status: Ordered omeprazole 20 mg oral delayed release tablet 1 tablet = 20 mg, By Mouth, Daily, # 90 tablet, 2 Refills, Maintenance, 06/23/20 8:38:00 EDT, EC Tablet, [facility]/pharmacy #[id number], Partial fill upon patient [...] Refills, Maintenance, 06/29/20 11:33:00 EDT, [facility]/pharmacy #[id number], Partial fill upon patient [...]
--- OUTSIDE RECORDS SUMMARY | 2023-09-09 11:02 | XMS_ITS | Continuity of Care Document ---
Author Organization [facility] Address [address], 4t [place] [address]- Care Team Providers Care Load Tester Name Role Phone Sung JAMES, Betty Ozuna Primary Care Physician Encounter [facility] Date(s): 12/16/20 - 02/04/21 [facility] [address], 4th [place] [address]- Attending Physician: Laura Butler MD Referring Physician: Josselin Maria MD Allergies, Adverse Reactions, Alerts Substance Reaction [...] 15:36:00 EST, Route to Pharmacy Electronically, [facility]/pharmacy #[id number], 170, cm, 03/24/19 8:00:00 EST, [...] Gm, 11 Refills, Maintenance, 01/25/21 13:46:00 EST, [facility][id number], Partial fill upon patient request if the prescription is for a schedule II opi... Start Date: 01/25/21 Status: Ordered omeprazole 20 mg oral delayed release tablet 1 tablet = 20 mg, By Mouth, Daily, # 90 tablet, 2 Refills, Maintenance, 06/23/20 8:38:00 EDT, EC Tablet, [facility]/pharmacy #[id number], Partial fill upon patient request [...] 3 Refills, Maintenance, 06/29/20 11:33:00 EDT, [facility]/pharmacy #[id number], Partial fill upon patient request [...]
--- OUTSIDE RECORDS SUMMARY | 2023-09-09 11:02 | XMS_ITS | Continuity of Care Document ---
Author Organization [facility] ter Address [address] [place] [address]- Care Team Providers Care Contact Center Engineer Name Role Phone Sung JAMES, Betty Ozuna Primary Care Physician Encounter [facility] Date(s): 04/29/21 - 07/31/[address] [address] Attending Physician: Susan Capellan MD Admitting Physician: Susan Capellan MD Allergies, Adverse Reactions, Alerts No Known Allergies Immunizations Given and Recorded Vaccine Date Status Refusal Reason influenza virus vaccine, inactivated 12/01/14 Thor rded hepatitis B adult vaccine 1 12/01/14 Recorded tetanus/diphtheria/pertussis, acel(Tdap) 04/03/14 Recorded Zoster Vaccine Live 12/08/11 Recorded pneumococcal 23-valent vaccine 2 11/17/11 Recorded 1Result Comment: [09/23/2015] riverbend 2Result Comment: [09/23/2015] josebesparkle Medications Albuterol (Eqv-ProAir HFA) 90 mcg/inh inhalation [...] EST, Route to Pharmacy Electronically, [facility]/pharmacy #[id number], 170, cm, 03/24/19 8:00:00 EST, Height, [...] Gm, 11 Refills, Maintenance, 01/25/21 13:46:00 EST, [facility] #[id number], Partial fill upon patient request if the prescription is for a schedule II opi... Start Date: 01/25/21 Status: Ordered omeprazole 20 mg oral delayed release tablet 1 tablet = 20 mg, By Mouth, Daily, # 90 tablet, 2 Refills, Maintenance, 06/23/20 8:38:00 EDT, EC Tablet, [facility]/pharmacy #[id number], Partial fill upon patient request if [...] each, 3 Refills, Maintenance, 06/29/20 11:33:00 EDT, [id number], Partial fill upon patient request if [...]
--- OUTSIDE RECORDS SUMMARY | 2023-09-09 11:02 | XMS_ITS | Continuity of Care Document ---
Author Organization [facility] Address [address] [place] [address]- Care Team Providers Care Casing In Line Setter Name Role Phone Sung JAMES, Betty Ozuna Primary Care Physician [facility] Date(s): 10/02/21 - 11/01/21 [facility] [address] [place] [address] Allergies, Adverse Reactions, Alerts No [...] Gm, 11 Refills, Maintenance, 09/09/21 14:09:00 EDT, [facility][id number], Partial fill upon patient request if the [...] 11 Refills, Maintenance, 09/09/21 14:03:00 EDT, Powder, [facility] #[id number], Partial fill upon patient request if the [...] Pt smokes E-cigarrets; entered on: 09/07/16 Sex Care Team Personnel Name: Sung JAMES , Betty Ozuna Address: [address] [place] [address]-
--- OUTSIDE RECORDS SUMMARY | 2023-09-09 11:02 | XMS_ITS | Continuity of Care Document ---
Author Organization [facility] Address [address] [place] [address]- Care Team Providers Care Band Reamer Machine Operator Name Role Phone Sung JAMES, Betty Ozuna Primary Care Physician Encounter [facility] Date(s): 08/12/19 - 09/11/19 [facility] [address] [place] [address] [facility] Referring Physician: Natalee Duffy Allergies, Adverse Reactions, Alerts Substance Reaction Severity [...] 03/24/19 15:36:00 EST, Route to Pharmacy Electronically, [facility]/pharmacy #[id number], 170, cm, 03/24/19 [...] Refills, Maintenance, 06/27/19 16:50:00 EDT, REC Powder, [facility]/pharmacy #[id number], 240 mL By Mouth Every 10 minutes, 170, cm, 03/24/19 8:00:00 EST, Height,87.8, kg, 03/24/19 4:33:00 EST, Dry Weight Start Date: 06/27/19 Status: Ordered omeprazole 40 mg oral enteric coated capsule 1 capsule = 40 mg, By Mouth, Daily, # 30 capsule, 5 Refills, Maintenance, 08/13/19 15:14:00 EDT, ECCapsule, [facility]/pharmacy #[id number], 161.6, cm, 08/13/19 13:09:00 EDT, Height, [...] 15:05:00 EST, Aerosol, Route to Pharmacy Electronically, [id number], [facility]/pharmacy #[id number], ICD code J44.9, 170, cm, [...]
--- OUTSIDE RECORDS SUMMARY | 2023-09-09 11:02 | XMS_ITS | Continuity of Care Document ---
Author Organization [facility] Address [address] [address]- Care Team Providers Care Vp Cardiovascular Name Role Phone Sung JAMES, Betty Ozuna Primary Care Physician [facility] Date(s): 10/28/22 - 11/27/22 [facility] [address] [address] Allergies, Adverse Reactions, Alerts No Known [...] Thor rded influenza virus vaccine, inactivated 09/29/15 Thro rded influenza virus vaccine, inactivated 12/01/14 Thor [...] Refills, Maintenance, 07/19/22 10:19:00 EDT, [facility]/pharmacy #[id number], Partial fill upon patient request if [...] 11 Refills, Maintenance, 07/19/22 10:19:00 EDT, Powder, [facility]/pharmacy #[id number], Partial fill upon patient request if [...] Physician Member Role: PCP Address: Address: [address] [place] [address]- Care Team Related Persons Name: JHONATAN ROSEN Address: home [address] [place] [address] Name: KENYON HUTCHINS Address: home [address] [place] [address] Name: JHONATAN OVALLE Address: [address] [place] [address]
--- OUTSIDE RECORDS SUMMARY | 2023-09-09 11:02 | XMS_ITS | Continuity of Care Document ---
Author Organization [facility] Address [address] [place] [address]- Care Team Providers Care Supervisor Dock Name Role Phone Sung JAMES, Betty Ozuna Primary Care Physician [facility] Date(s): 03/21/23 - 04/20/23 [facility] [address] [place] [address] Allergies, Adverse Reactions, Alerts No Known [...] 1Result Comment: [09/23/2015] janessand 2Result Comment: [09/23/2015] jimmie Medications Albuterol (Eqv-ProAir [...] Physician Member Role: PCP Address: Address: [address] [place] [address]- Care Team Related Persons Name: JHONATAN ROSEN Address: [address] [place] [address] Name: KENYON HUTCHINS Address: home [address] [place] [address] Name: JHONATAN OVALLE Address: [address] [place] [address]
--- OUTSIDE RECORDS SUMMARY | 2023-09-09 11:02 | XMS_ITS | Continuity of Care Document ---
Author Organization [facility] Address [address] [place] [address]- Care Team Providers Care Programmer Analyst Health It Name Role Phone Sung JAMES, Betty Ozuna Primary Care Physician Encounter [facility] Date(s): 02/13/20 - 04/10/20 [facility] [address] [place], [place] [address] Attending Physician: Ashley Joseph MD Admitting Physician: Ashley Joseph MD Referring Physician: Sung JAMES , Betty Ozuna Allergies, Adverse Reactions, Alerts Substance Reaction Severity [...] 03/24/19 15:36:00 EST, Route to Pharmacy Electronically, [facility]/pharmacy #[id number], 170, cm, 03/24/19 8:00:00 EST, Height, 87.8, kg, 03/24/19 4:33:00 EST, Dry Weight Start Date: 03/24/19 Status: Ordered amLODIPine 5 mg oral tablet 5 mg, 1, tablet, By Mouth, Daily, Refills 0, Maintenance, 12/22/20 13:09:00 EST, Partial fill upon patient request [...]
--- OUTSIDE RECORDS SUMMARY | 2023-09-09 11:02 | XMS_ITS | Continuity of Care Document ---
Author Organization [facility] Address [address] [place] [address]- Care Team Providers Care Elementary School Science Teacher Name Role Phone Sung JAMES, Betty Ozuna Primary Care Physician [facility] Date(s): 08/10/21 - 09/09/21 [facility] [address] [place] [address]- Attending Physician: Admtr, Ar8 Admitting Physician: Admtr, Ar8 Referring Physician: Admtr, [...] Gm, 11 Refills, Maintenance, 09/09/21 14:09:00 EDT, [facility] #[id number], Partial fill upon patient request if the [...] 11 Refills, Maintenance, 09/09/21 14:03:00 EDT, Powder, [id number], Partial fill upon patient request if the prescription is for a schedule II opioid drSantosh. Start Date: 09/09/21 Status: Ordered Pravachol 20 [...]
--- OUTSIDE RECORDS SUMMARY | 2023-09-09 11:02 | XMS_ITS | Continuity of Care Document ---
Author Organization [facility] Address [address] [place] [address]- Care Team Providers Care Early Childhood Educator Aide Name Role Phone Sung JAMES, Betty Ozuna Primary Care Physician Encounter [facility] Date(s): 09/22/20 - 11/20/20 [facility] [address] [place] [address]- Attending Physician: Ashley Joseph MD Admitting Physician: Ashley Joseph MD Allergies, Adverse Reactions, Alerts Substance Reaction [...] 03/24/19 15:36:00 EST, Route to Pharmacy Electronically, [facility]/pharmacy #[id number], 170, cm, 03/24/19 8:00:00 EST, Height, [...] Refills, Maintenance, 06/23/20 8:38:00 EDT, EC Tablet, [facility]/pharmacy #[id number], Partial fill upon patient request if the [...] each, 3 Refills, Maintenance, 06/29/20 11:33:00 EDT, [facility]/pharmacy #[id number], Partial fill upon patient request if [...]
--- OUTSIDE RECORDS SUMMARY | 2023-09-09 11:02 | XMS_ITS | Continuity of Care Document ---
Author Organization [facility] Address [address] [facility], [address] [place] [address]- Care Team Providers Care Transit Mixer Operator Name Role Phone Sung JAMES, Betty Ozuna Primary Care Physician Encounter [facility] Date(s): 10/14/22 - 11/13/22 [facility] [place] [facility] [address], 4th [place] [address]- Attending Physician: Candice Brown Admitting Physician: AdmtrCandice Referring Physician: Admtr, ArHang Allergies, Adverse Reactions, Alerts No Known Allergies [...] 1Result Comment: [09/23/2015] janessand 2Result Comment: [09/23/2015] janessand Medications Albuterol (Eqv-ProAir HFA) 90 mcg/inh inhalation [...] Care Team Personnel Name: Teena Newell Position: [facility] Outreach Member Role: Lifetime Consulting Physician Name: Sung JAMES , Betty Ozuna Position: Reference Physician Member Role: PCP Address: Address: [address] [place] [address]- Care Team Related Persons Name: JHONATAN ROSEN Address: [address] [place] [address] Name: KENYON HUTCHINS Address: home [address] [place] [address] Name: JHONATAN OVALLE Address: [address] [place] [address]
--- OUTSIDE RECORDS SUMMARY | 2023-09-09 11:02 | XMS_ITS | Continuity of Care Document ---
Author Organization [facility] [facility] Address [address] [facility], [address] [address]- Care Team Providers Care Slot Machine Key Person Name Role Phone Sung JAMES, Betty Ozuna Primary Care Physician Encounter [facility] Date(s): 04/13/21 - 05/13/21 [facility] [address] [facility], [address]th [place], [place] [address] Allergies, Adverse Reactions, Alerts No [...] Pharmacy Electronically, [facility]/pharmacy #[id number], 170, cm, 03/24/19 8:00:00 EST, Height, 87.8, [...] Gm, 11 Refills, Maintenance, 01/25/21 13:46:00 EST, [facility] #[id number], Partial fill upon patient request if the prescription is for a schedule II opi... Start Date: 01/25/21 Status: Ordered omeprazole 20 mg oral delayed release tablet 1 tablet = 20 mg, By Mouth, Daily, # 90 tablet, 2 Refills, Maintenance, 06/23/20 8:38:00 EDT, EC Tablet, [facility]/pharmacy #[id number], Partial fill upon patient [...] each, 3 Refills, Maintenance, 06/29/20 11:33:00 EDT, [facility]/pharmacy #[id number], Partial fill upon patient [...]
--- OUTSIDE RECORDS SUMMARY | 2023-09-09 11:02 | XMS_ITS | Continuity of Care Document ---
Author Organization [facility] Address [address] [place] [address]- Care Team Providers Care Journeyman Wireman Name Role Phone Sung JAMES, Betty Ozuna Primary Care Physician [place] [facility] [place]s): 01/28/20 - 03/14/20 [facility] [address] [place], [place] [address] Attending Physician: Ashley Joseph MD Admitting Physician: Ashley Joseph MD Referring Physician: Lorena JAMES, Guanakito Nick Allergies, Adverse Reactions, Alerts Substance Reaction Severity [...] 03/24/19 15:36:00 EST, Route to Pharmacy Electronically, [facility]/pharmacy #[id number], 170, cm, 03/24/19 8:00:00 EST, [...]
--- OUTSIDE RECORDS SUMMARY | 2023-09-09 11:02 | XMS_ITS | Continuity of Care Document ---
Author Organization [facility] Address [address] [address]- Care Team Providers Care Warehouse Record Clerk Name Role Phone Sung JAMES, Betty Ozuna Primary Care Physician [facility] Date(s): 05/29/23 - 06/28/23 [facility] [address] [place] [address] Allergies, Adverse Reactions, Alerts No [...] Gm, 11 Refills, Maintenance, 07/19/22 10:19:00 EDT, [facility]/pharmacy #2339, Partial fill upon patient request [...] 42 tablet, 0 Refills, Maintenance,04/24/23 8:54:00 EDT, [facility]/pharmacy #2339, Partial fill upon patient request [...] Physician Member Role: PCP Address: Address: [address] [place] [address]- Care Team Related Persons Name: JHONATAN ROSEN Address: [place] [address] Name: KENYON HUTCHINS Address: home [address] [place] [address] Name: JHONATAN OVALLE Address: [address] [place] [address]
--- OUTSIDE RECORDS SUMMARY | 2023-09-09 11:02 | XMS_ITS | Continuity of Care Document ---
Author Organization [facility] ter Address [address] [place] [address]- Care Team Providers Care Charge Out Clerk Name Role Phone Sung JAMES, Betty Ozuna Primary Care Physician Encounter [facility] Date(s): 09/12/18 - 06/05/[address] [address] [facility] Attending Physician: Klever Cee MD Admitting Physician: Klever Cee MD Allergies, Adverse Reactions, [...] 03/24/19 15:36:00 EST, Route to Pharmacy Electronically, [facility]/pharmacy #[id number], 170, cm, 03/24/19 8:00:00 [...] 15:05:00 EST, Aerosol, Route to Pharmacy Electronically, [id number], [facility]/pharmacy #[id number], ICD code J44.9, 170, cm, .. [...]
--- OUTSIDE RECORDS SUMMARY | 2023-09-09 11:02 | XMS_ITS | Continuity of Care Document ---
Author Organization [facility] Address [address] [place] [address] [address]- Care Team Providers Care Parks And Recreation Manager Name Role Phone Sung JAMES, Betty Ozuna Primary Care Physician [facility] Date(s): 04/24/23 - 05/24/23 [facility] [address] [facility] [address] [place] [address] [address] Attending Physician: Admtr, Ar8 Admitting Physician: Admtr, [...] Gm, 11 Refills, Maintenance, 07/19/22 10:19:00 EDT, [facility]/pharmacy #1429, Partial fill upon patient request if the [...] 42 tablet, 0 Refills, Maintenance,04/24/23 8:54:00 EDT, [facility]/pharmacy #2339, Partial fill upon patient request if [...] Pt smokes E-cigarrets; entered on: 09/07/16 Sex MG Breast Views * Event Display: MM Mammogram, Non- Authored Date: Patient Care team information Care Team Personnel Name: Teena Newell Position: [facility] Outreach Member Role: Lifetime Consulting Physician Name: Sung JAMES , Betty Ozuna Position: Reference Physician Member Role: PCP Address: Address: [address] [place] [address]- [place] Care Team Related Persons Name: JHONATAN ROSEN Address: [address] [place] [address] Name: KENYON HUTCHINS Address: [address] [place] [address] Name: JHONATAN OVALLE Address: [address] [place] [address]
--- OUTSIDE RECORDS SUMMARY | 2023-09-09 11:02 | XMS_ITS | Continuity of Care Document ---
Author Organization [facility] [employer] [facility] Address [address] [facility], [address] [place] [address]- Care Team Providers Care Public Information Relations Manager Name Role Phone Sung JAMES, Betty Ozuna Primary Care Physician [facility] Date(s): 05/04/21 - 06/03/21 [facility] [address] [facility], [address] [place], [place] [address] Allergies, Adverse Reactions, Alerts No [...] 03/24/19 15:36:00 EST, Route to Pharmacy Electronically, [facility]/pharmacy #[id number], 170, cm, 03/24/19 8:00:00 EST, Height, 87.8, [...] Gm, 11 Refills, Maintenance, 01/25/21 13:46:00 EST, [facility] #[id number], Partial fill upon patient request if the prescription is for a schedule II opi... Start Date: 01/25/21 Status: Ordered omeprazole 20 mg oral delayed release tablet 1 tablet = 20 mg, By Mouth, Daily, # 90 tablet, 2 Refills, Maintenance, 06/23/20 8:38:00 EDT, EC Tablet, [facility]/pharmacy #[id number], Partial fill upon [...] each, 3 Refills, Maintenance, 06/29/20 11:33:00 EDT, [facility]/pharmacy #0693, Partial fill upon [...]
--- OUTSIDE RECORDS SUMMARY | 2023-09-09 11:02 | XMS_ITS | Continuity of Care Document ---
Author Organization [facility] Address [address] [facility], 4t [place] [address]- Care Team Providers Care Progressive Care Nurse Name Role Phone Sung JAMES, Betty Ozuna Primary Care Physician [facility] Date(s): 05/25/23 - 08/13/23 [facility] [facility] [address], 4th [place] [address]- Attending Physician: Susan Capellan MD Admitting Physician: Susan Capellan MD Referring Physician: Kasie Burnett MD Allergies, Adverse Reactions, Alerts No Known [...] 1Result Comment: [09/23/2015] josebend 2Result Comment: [09/23/2015] janessand Medications Albuterol (Eqv-ProAir HFA) 90 mcg/inh inhalation aerosol 2 puffs, Inhalation, Every 4 hours, PRN Wheezing/Shortness of Breath, # 8 Gm, 11 Refills, Maintenance, 07/19/22 10:19:00 EDT, [facility]/pharmacy #2338, Partial fill upon patient request if the [...] 42 tablet, 0 Refills, Maintenance,04/24/23 8:54:00 EDT, [facility]/pharmacy #2339, Partial fill upon patient request [...] Physician Member Role: PCP Address: Address: [address] [place] [address]- Care Team Related Persons Name: JHONATAN ROSEN Address: [address] [place] [address] Name: KENYON HUTCHINS Address: home [address] [place] [address] Name: JHONATAN OVALLE Address: [address] [place] [address]
--- OUTSIDE RECORDS SUMMARY | 2023-09-09 11:03 | XMS_ITS | Continuity of Care Document ---
Author Organization [facility] Address [address] [place] [address]- Care Team Providers Care Iron Pellet Tester Name Role Phone Sung JAMES, Betty Ozuna Primary Care Physician Encounter [facility] Date(s): 07/19/22 - 08/18/22 [facility] [address] [address] Attending Physician: Candice Brown Admitting Physician: AdmCandice [...] Gm, 11 Refills, Maintenance, 07/19/22 10:19:00 EDT, [facility]/pharmacy #2339, Partial fill upon patient [...] 11 Refills, Maintenance, 07/19/22 10:19:00 EDT, Powder, [facility]/pharmacy #2339, Partial fill upon patient [...] Views * Event Display: MM Mammogram, Non- BH Authored Date: Patient Care team information Care Team Personnel Name: Teena Newell Position: [facility] Outreach Member Role: Lifetime Consulting Physician Name: Sung JAMES , Betty Ozuna Position: Reference Physician Member Role: PCP Address: Address: [address] [place] [address]- Name: Siria Armstrong Position: [facility] TA Member Role: Lifetime Consulting Physician Care Team Related Persons Name: JHONATAN ROSEN Address: home [place] Name: KENYON HUTCHINS Address: [address] [place] [address] Name: JHONATAN OVALLE Address: [address] [place] [address]
--- OUTSIDE RECORDS SUMMARY | 2023-09-09 11:03 | XMS_ITS | Continuity of Care Document ---
Author Organization [facility] Address [address] [address]- Care Team Providers Care Air Support Operations Operator Name Role Phone Sung JAMES, Betty Ozuna Primary Care Physician En[facility] Date(s): 03/02/23 - 04/01/23 [facility] [address] [address] Attending Physician: Candice Brown Admitting Physician: [...] Gm, 11 Refills, Maintenance, 07/19/22 10:19:00 EDT, [facility]/pharmacy #2339, Partial fill upon patient [...] Physician Member Role: PCP Address: Address: [address] [place] [address]- Care Team Related Persons Name: JHONATAN ROSEN Address: [address] [place] [address] Name: KENYON HUTCHINS Address: [address] [place] [address] Name: JHONATAN OVALLE Address: [address] [place] [address]
--- OUTSIDE RECORDS SUMMARY | 2023-09-09 11:03 | XMS_ITS | Continuity of Care Document ---
Author Organization [facility] Address [address] [place] [address]- Care Team Providers Care Eyeglass Lens Grinder Name Role Phone Sung JAMES, Betty Ozuna Primary Care Physician Encounter [facility] Date(s): 01/15/20 - 02/14/20 [facility] [address] [place], [place] [address] Allergies, Adverse Reactions, Alerts Substance Reaction Severity [...] 03/24/19 15:36:00 EST, Route to Pharmacy Electronically, [facility]/pharmacy #[id number], 170, cm, 03/24/19 [...]
--- OUTSIDE RECORDS SUMMARY | 2023-09-09 11:03 | XMS_ITS | Continuity of Care Document ---
Author Organization [facility] Address [address] [place] [address]- Care Team Providers Care Shanker Out Name Role Phone Sung JAMES, Betty Ozuna Primary Care Physician Encounter [facility] Date(s): 02/23/23 - 03/25/23 [facility] [address] [address]- Encounter Diagnosis Chronic obstructive pulmonary disease(Discharge Diagnosis) - 02/23/23 Allergies, Adverse Reactions, Alerts No Known Allergies [...] Gm, 11 Refills, Maintenance, 07/19/22 10:19:00 EDT, [facility]/pharmacy #[id number], Partial fill upon patient request if the [...] Confirmed Active Other urinary incontinence Confirmed Active Diagnosis Diagnosis Type Effective Dates Health Status Clinical Service Informant Chronic obstructive pulmonary disease Discharge Diagnosis 02/23/23 Non-Specified Social History Social History Type Response Smoking Status Former smoker; Tobac co user in household: No; Other: Pt smokes E-cigarrets; entered on: 09/07/16 Sex Patient Care team information Care Team Personnel Name: Teena Newell Position: [facility] Outreach Member Role: Lifetime Consulting Physician Name: Sung JAMES , Betty Ozuna Position: Reference Physician Member Role: PCP Address: Address: [address] [place] [address]- Care Team Related Persons Name: JHONATAN ROSEN Address: home [address] [place] [address] Name: KENYON HUTCHINS Address: home [address] [place] [address] Name: JHONATAN OVALLE Address: [address] [place] [address]
--- OUTSIDE RECORDS SUMMARY | 2023-09-09 11:03 | XMS_ITS | Continuity of Care Document ---
Author Organization [facility] Address [address] [place] [address]- Care Team Providers Care Linoleum Installer Name Role Phone Sung JAMES, Betty Ozuna Primary Care Physician [place] [facility] [place] Date(s): 09/19/19 - 10/19/19 [facility] [address] [place] [address] [facility] Attending Physician: Candice Brown Admitting Physician: AdmtrCandice [...] 03/24/19 15:36:00 EST, Route to Pharmacy Electronically, [facility]/pharmacy #[id number], 170, cm, 03/24/19 8:00:00 EST, [...] Refills, Maintenance, 06/27/19 16:50:00 EDT, REC Powder, [facility]/pharmacy #[id number], 240 mL By Mouth Every 10 minutes, 170, cm, 03/24/19 8:00:00 EST, Height,87.8, kg, 03/24/19 4:33:00 EST, Dry Weight Start Date: 06/27/19 Status: Ordered omeprazole 40 mg oral enteric coated capsule 1 capsule = 40 mg, By Mouth, Daily, # 30 capsule, 5 Refills, Maintenance, 08/13/19 15:14:00 EDT, ECCapsule, [facility]/pharmacy #[id number], 161.6, cm, 08/13/19 13:09:00 EDT, [...] 15:05:00 EST, Aerosol, Route to Pharmacy Electronically, [id number], [facility]/pharmacy #[id number], ICD code J44.9, 170, cm, [...]
--- OUTSIDE RECORDS SUMMARY | 2023-09-09 11:03 | XMS_ITS | Continuity of Care Document ---
Author Organization [facility] Address [address] [facility], [address] [place] [address]- Care Team Providers Care Steeple Jack Name Role Phone Sung JAMES, Betty Ozuna Primary Care Physician Encounter [facility] [place] Date(s): 08/05/22 - 11/13/22 [facility] [place] [facility] [address] [place], [place] [address] Attending Physician: Susan Capellan MD Admitting Physician: Susan Capellan MD Referring Physician: Susan Capellan MD Allergies, Adverse Reactions, [...] Gm, 11 Refills, Maintenance, 07/19/22 10:19:00 EDT, [facility]/pharmacy #[id number], Partial fill upon patient request if [...] 11 Refills, Maintenance, 07/19/22 10:19:00 EDT, Powder, [facility]/pharmacy #[id number], Partial fill upon patient request if [...] Care Team Personnel Name: Teena Newell Position: [facility] Outreach Member Role: Lifetime Consulting Physician Name: Sung JAMES , Betty Ozuna Position: Reference Physician Member Role: PCP Address: Address: [address] [place] [address]- Care Team Related Persons Name: JHONATAN ROSEN Address: [address] [place] [address] Name: KENYON HUTCHINS Address: home [address] [place] [address] Name: JHONATAN OVALLE Address: [address] [place] [address]
--- OUTSIDE RECORDS SUMMARY | 2023-09-09 11:03 | XMS_ITS | Continuity of Care Document ---
Author Organization [facility] Address [address] [place] [address]- Care Team Providers Care Senior Interior Designer Name Role Phone Sung JAMES, Betty Ozuna Primary Care Physician [place] [facility] 05/27/20 - 07/25/20 [facility] [address] [address] Attending Physician: Petra Monterroso MD, Rosendo Patrick Admitting Physician: Rosendo Zeng MD Allergies, Adverse Reactions, Alerts Substance Reaction [...] 03/24/19 15:36:00 EST, Route to Pharmacy Electronically, [facility]/pharmacy #[id number], 170, cm, 03/24/19 [...] Refills, Maintenance, 06/23/20 8:38:00 EDT, EC Tablet, [facility]/pharmacy #[id number], Partial fill upon [...] each, 3 Refills, Maintenance, 06/29/20 11:33:00 EDT, [facility]/pharmacy #[id number], Partial fill upon [...]
--- OUTSIDE RECORDS SUMMARY | 2023-09-09 11:03 | XMS_ITS | Continuity of Care Document ---
Author Organization [facility] Address [address] [place] [address]- Care Team Providers Care Telesales Professional Name Role Phone Sung JAMES, Betty Ozuna Primary Care Physician Encounter [facility] Date(s): 04/21/23 - 05/21/23 [facility] [address] [place] [address] Allergies, Adverse Reactions, Alerts No [...] 11 Refills, Maintenance, 07/19/22 10:19:00 EDT, [facility]/pharmacy #[id number], Partial fill upon patient request if [...] Physician Member Role: PCP Address: Address: [address] [place] [address]- Care Team Related Persons Name: JHONATAN ROSEN Address: [place] [address] Name: KENYON HUTCHINS Address: [address] [place] [address] Name: JHONATAN OVALLE Address: home [address] [place] [address]
--- OUTSIDE RECORDS SUMMARY | 2023-09-09 11:03 | XMS_ITS | Continuity of Care Document ---
Author Organization [facility] Address [address] [place] [address]- Care Team Providers Care Residential Program Worker Name Role Phone Sung JAMES, Betty Ozuna Primary Care Physician Encounter [facility] Date(s): 05/13/21 - 06/19/21 [facility] [address] [place] [address] Attending Physician: Mike Yeh MD Admitting Physician: Mike Yeh MD Allergies, Adverse Reactions, Alerts No Known [...] 03/24/19 15:36:00 EST, Route to Pharmacy Electronically, [facility]/pharmacy #[id number], 170, cm, 03/24/19 8:00:00 EST, Height, 87.8, [...] Gm, 11 Refills, Maintenance, 01/25/21 13:46:00 EST, [id number], Partial fill upon patient request if the prescription is for a schedule II opi... Start Date: 01/25/21 Status: Ordered omeprazole 20 mg oral delayed release tablet 1 tablet = 20 mg, By Mouth, Daily, # 90 tablet, 2 Refills, Maintenance, 06/23/20 8:38:00 EDT, EC Tablet, [facility]/pharmacy #[id number], Partial fill upon patient request [...]
--- OUTSIDE RECORDS SUMMARY | 2023-09-09 11:03 | XMS_ITS | Continuity of Care Document ---
Author Organization [facility] Address [address] [facility], [address] [place] [address]- Care Team Providers Care Utility Tractor Operator Name Role Phone Sung JAMES, Betty Ozuna Primary Care Physician [place] [facility] 03/17/21 - 04/16/21 [facility] [address] [facility] [place], [place] [address] Allergies, Adverse Reactions, Alerts [...] 15:36:00 EST, Route to Pharmacy Electronically, [facility]/pharmacy #[id number], 170, cm, 03/24/19 8:00:00 EST, [...] Gm, 11 Refills, Maintenance, 01/25/21 13:46:00 EST, [id number], Partial fill upon patient request if the prescription is for a schedule II opi... Start Date: 01/25/21 Status: Ordered omeprazole 20 mg oral delayed release tablet 1 tablet = 20 mg, By Mouth, Daily, # 90 tablet, 2 Refills, Maintenance, 06/23/20 8:38:00 EDT, EC Tablet, [facility]/pharmacy #[id number], Partial fill upon patient request [...] 3 Refills, Maintenance, 06/29/20 11:33:00 EDT, [facility]/pharmacy #[id number], Partial fill upon patient request [...]
--- OUTSIDE RECORDS SUMMARY | 2023-09-09 11:03 | XMS_ITS | Continuity of Care Document ---
Author Organization [facility] Address [address] [place] [address]- Care Team Providers Care Marketing Analytics Specialist Name Role Phone Sung JAMES, Betty Ozuna Primary Care Physician Encounter [facility] Date(s): 07/13/23 - 08/12/23 [facility] [address] [place] [address] Allergies, Adverse Reactions, Alerts No Known [...] Gm, 11 Refills, Maintenance, 07/19/22 10:19:00 EDT, [facility]/pharmacy #[id number], Partial fill upon patient request [...] Physician Member Role: PCP Address: Address: [address] [place] [address]- Care Team Related Persons Name: JHONATAN ROSEN Address: [place] [address] Name: KENYON HUTCHINS Address: [address] [place] [address] Name: JHONATAN OVALLE Address: [address] [place] [address]
--- OUTSIDE RECORDS SUMMARY | 2023-09-09 11:03 | XMS_ITS | Continuity of Care Document ---
Author Organization [facility] Address [address] [place] [address]- Care Team Providers Care Animal Attendant Name Role Phone Sung JAMES, Betty Ozuna Primary Care Physician [place] [facility] [place] Date(s): 03/23/19 - 03/24/[address] [address]- [facility] Discharge Disposition: A-D/C Home Attending Physician: Yancy Rivera MD Admitting Physician: Verito Herr DO Referring Physician: Not on Staff, Referring MD [...] 03/24/19 15:36:00 EST, Route to Pharmacy Electronically, [facility]/pharmacy #[id number], 170, cm, 03/24/19 [...] EDT, Compound Start Date: 05/21/18 Status: Ordered melatonin 3 mg oral tablet 1 tablet = 3 mg, By Mouth, Daily at bedtime, for 30 days, # 30 tablet, 0 Refills, Acute 04/23/19 15:29:00 EDT, 03/24/19 15:29:00 EST, Tablet, [facility]/pharmacy #[id number], 170, cm, 03/24/19 8:00:00 EST, Height, 87.8, kg, 03/24/19 4:33:00 EST, Dry Weight Start Date: 03/24/19 Stop Date: 04/23/19 Status: Ordered Pepcid 20 mg oral tablet [...] 17:09:00 EST, Aerosol, Route to Pharmacy Electronically, [id number], [facility]/pharmacy #[id number], ICD code J44.9 Start Date: 03/01/18 Status: Ordered rosuvastatin 5 mg oral capsule [...] oldest [Reference Range]: 1 2 3 Height 170 cm (03/24/19 8:00 AM) 170 cm (03/24/19 4:33 AM) Weight 87.3 kg (03/24/19 5:16 AM) 87.8 kg (03/24/19 4:33 AM) 89 kg (03/24/19 3:59 AM) Oxygen Saturation [94-100 %] 97 % (03/24/19 8:00 AM) 98 % (03/24/19 5:17 AM) 99 % (03/24/19 3:59 AM) Pulse Rate [55-90 bpm] 60 bpm (03/24/19 12:00 PM) 52 bpm *L* (03/24/19 8:00 AM) 60 bpm (03/24/19 5:17 AM) Body Mass Index [18.5-24.99] 30.38 *>HHI* (03/24/19 4:33 AM) Blood Pressure [90-138/55-84 mm Hg] 148/76mm Hg *H* (03/24/19 12:00 PM) 153/91mm Hg *H* (03/24/19 8:00 AM) 144/75mm Hg *H* (03/24/19 5:17 AM) Respiratory Rate [16-30 br/min] 20 br/min (03/24/19 8:00 AM) 16 br/min (03/24/19 5:17 AM) 18 br/min (03/24/19 3:59 AM) Temperature [96.8-100.4 DegF] 97.8 DegF (03/24/19 8:00 AM) 97.5 DegF (03/24/19 5:17 AM) 97.9 DegF (03/24/19 3:59 AM) Mode of Delivery (Oxygen) Room air (03/24/19 8:00 AM) Room air (03/24/19 5:17 AM) Room air (03/24/19 3:59 AM) Blood pressure sites Arm, right (03/24/19 8:00 AM) Arm, left (03/24/19 5:17 AM) Arm, right (03/24/19 3:59 AM) Temperature Route Oral (03/24/19 8:00 AM) Oral (03/24/19 5:17 AM) Oral (03/24/19 3:59 AM) Dry Weight 87.8 kg (03/24/19 4:33 AM) 89 kg (03/24/19 3:59 AM) 89 kg (03/23/19 10:49 PM) Weight Obtained Via Bed scale (03/24/19 5:16 AM) Bed scale (03/24/19 4:33 AM) Dry Weight Obtained Via Patient/family s tated (03/24/19 4:33 AM) Social History Social History Type Response Smoking Status Former smoker; Tobac co user in household: No; Other: Pt smokes E-cigarrets; entered on: 09/07/16 Sex
[2023-09-09 12:13] VITALS: BP 130/86; PULSE 61; TEMP 36.8; O2SAT 98; BMI 31.8
--- NOTE | 2023-09-09 12:13 | MHC.OFFWIV ---
Intake Vital Signs 09/09/23 12:13 Height 5 ft 6.5 in Weight 200 lb BMI 31.8 BP 130/86 Blood Pressure Location Lt brachial Position Sitting Pulse 61 Pulse Source Pulse Oximeter Temp 98.3 F Temp Source Oral Pulse Oximetry (%) 98 Oxygen Delivery Method Room Air Intake Visit Reasons: EP ?Tick in LT ear Intake Note: Pt is here today c/o ?Lt ear outer red and swollen Patient Tobacco Use Status: Former Tobacco user Allergies No Known Allergies Allergy (Verified 09/05/23 13:03) HPI EP ?Tick in LT ear HPI Details Patient is a 73-year-old female who comes to the walk-in clinic complaining of pain and swelling to the left outer ear where she has a bump . She is very nervous that this could be due to a tick bite, although there was no visible tick or insect found. She has no other associated symptoms, including no fever chills, malaise or myalgias, nausea vomiting or diarrhea, weakness or dizziness, ear pain, respiratory symptoms, decreased hearing or other significant systemic or associated symptoms. 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 History of arthroscopic knee surgery History of knee replacement History of tonsillectomy History of bilateral tubal ligation Family History Father History of CVA (cerebrovascular accident) Mother Osteoarthritis Brother Brain cancer Sister Cancer Social History Housing: Condominium Alcohol intake: current Alcohol intake frequency: holidays/special occasions only Patient Tobacco Use Status: Former Tobacco user Years Smoked: 45yrs e-Cigarette/Vaping Use: Never Used Current occupational status: retired Cognitive needs: No Hearing needs: No Vision needs: Yes Review of Systems Const All systems reviewed & are unremarkable except as noted in HPI and below Physical Exam Vital Signs: Last Vital Signs Temp 98.3 F 09/09/23 12:13 Pulse 61 09/09/23 12:13 BP 130/86 09/09/23 12:13 Pulse Ox 98 09/09/23 12:13 Oxygen Delivery Method Room Air 09/09/23 12:13 BMI result Body Mass Index 31.8 HEENT Ears: TM normal on the left and EAC's normal (On the left) Outer ear/TM images: 1. Patient has approximately 0.5 cm abscess at the tip of her left tragus, with fluctuance and mild surrounding edema erythema and warmth. No central puncture wound apparent, no streaking. Skin Other: Skin otherwise good color warm and dry Assessment & Plan Assessment & Plan (1) Abscess of earlobe: Code(s): H60.00 - Abscess of external ear, unspecified ear Qualifiers: Laterality: left Qualified Code(s): H60.02 - Abscess of left external ear Plan: Patient has small approximately 0.25 cm abscess to the tragus of her left ear. I did a small incision to the fluctuant middle of the abscess, there was a small amount of purulent drainage, which was swabbed for culture with results pending. I started her on doxycycline. Patient is anxious over possible tick bite although there was no insect or other bite or sting apparent. She requested Lyme labs be drawn also, which was ordered today with results pending. In the meantime, advised that she keep the area clean covered and dry as there might be some more drainage. She should monitor for resolution of drainage as well as the area becoming more red, warm or swollen surrounding the abscess. Follow-up with PCP for this would be prudent. She knows to go to the emergency department with worrisome symptoms. Orders: Orders Lyme IgG/IgM w/reflex to WB 09/09/23 W57.XXXA - Bitten or stung by nonvenomous insect and other nonvenomous arthropods, initial encounter Routine Culture w Gram Stain 09/09/23 L02.91 - Cutaneous abscess, unspecified Medications: New doxycycline monohydrate 100 mg PO BID PRN 20 caps 0RF cellulitis 10 days Coding Level of Care Code Est Pt Level 4 (00299) Diagnoses Abscess of left earlobe H60.02 Laterality: left
== END 2023-09-09 14:45 | disposition home or self-care (01) ==
PROVIDERS: PCP Internal Medicine; Visit Provider Physician Assistant Medical
DX: H60.02 Abscess of left external ear (principal)
CPT/HCPCS: 99214

== ENCOUNTER 2023-09-09 14:13 | Outpatient (REF) | payer MEDICARE, OTHER, SELFPAY | END 2023-09-09 14:14 | disposition home or self-care (01) | LOC: HO.LAB 14:13 | PROVIDERS: Visit Provider Physician Assistant Medical | DX: Z13.89 Encounter for screening for other disorder (principal) ==

== ENCOUNTER 2023-09-09 14:14 | Outpatient (REF) | payer MEDICARE, OTHER, SELFPAY ==
[2023-09-12 01:34] LABS: Lyme Abs Screen <0.90 index
== END 2023-09-09 14:15 | disposition home or self-care (01) ==
LOC: HO.HMGCLDS 14:14
PROVIDERS: PCP Internal Medicine; Visit Provider Physician Assistant Medical
DX: T14.8XXA Other injury of unspecified body region, initial encounter (principal); W57.XXXA Bitten or stung by nonvenomous insect and other nonvenomous arthropods, initial encounter
CPT/HCPCS: 36415; 86617; 86618; 87070; 87077; 87186; 87205

== ENCOUNTER 2023-09-09 16:08 | Outpatient (REF) | payer MEDICARE, OTHER, SELFPAY | END 2023-09-09 16:09 | disposition home or self-care (01) | LOC: HO.CHCLNP 16:08 | PROVIDERS: Visit Provider Physician Assistant Medical | DX: Z13.89 Encounter for screening for other disorder (principal) | CPT/HCPCS: 87070; 87077; 87186; 87205 ==